=== PATIENT | female | born 1940 | race African-American/Black ===

== ENCOUNTER 2020-04-17 18:57 | Observation (INO) ==
[2020-04-17 21:53] LABS: Basophils % 0.6 % (0.0-0.8); Eosinophils # 0.1 10*3/uL (0.0-0.87); Eosinophils % 1.8 % (0.00-10.9); Immature Granulocytes % 0.3 %; Immature Granulocytes Absolute 0.01 #; Lymphocytes # 0.5 10*3/uL (1.4-4.0); Lymphocytes % 16.2 % (21.3-54.2); Mean Corpuscular Volume 101.8 FL (87-102); Mean Platelet Volume 11.9 FL (9.6-12.0); Monocytes % 11.3 % (1.7-12.7); Neutrophils % 69.8 % (38.7-73.9); Platelet Count 119 T/CUMM (130-400); Red Blood Count 1.69 MC/CUMM (3.8-5.5); Red Cell Distribution Width 19.9 % (9.3-17.3); White Blood Count 3.3 T/CUMM (4-12)
[2020-04-17 21:55] LABS: Hemoglobin 5.5 GM/DL (12.0-16.0)
[2020-04-17 21:56] LABS: Hematocrit 17.2 VOL% (35.7-47.0)
[2020-04-17 22:10] LABS: Bilirubin,Total 0.9 MG/DL (0.2-1.0); Calcium 8.5 MG/DL (8.5-10.1); Osmolality,Calculated 277.4 MOS/KG (273-304); Total Protein 6.8 G/DL (6.4-8.3)
[2020-04-17] MEDS ORDERED: POTASSIUM CHLORIDE 20 MEQ TABLET PO STA (23:20)
[2020-04-17] MEDS ORDERED: SODIUM CHLORIDE 0.9% 1,000 ML IV PRN (23:29)
[2020-04-17] MEDS ORDERED: POTASSIUM CHLORIDE 20 MEQ TABLET PO PRN (23:29)
[2020-04-17] MEDS ORDERED: ACETAMINOPHEN 325 MG TABLET PO PRN (23:29)
[2020-04-17] MEDS ORDERED: ONDANSETRON 4 MG/2 ML VIAL IV PRN (23:29)
[2020-04-17] MEDS ORDERED: GLUCAGON 1 MG VIAL IM PRN (23:29)
[2020-04-17] MEDS ORDERED: DEXTROSE 50% 25 GM/50 ML VIAL IV PRN (23:29)
[2020-04-18] MEDS: PANTOPRAZOLE 40 MG VIAL IV SCH ×3 (01:20→20:54)
[2020-04-18 04:01] LABS: % Iron Saturation 93.6 % (18-50)
[2020-04-18 08:12] LABS: Albumin 2.1 G/DL (3.4-5.0); Bilirubin,Total 1.4 MG/DL (0.2-1.0); Calcium 8.7 MG/DL (8.5-10.1); Osmolality,Calculated 277.4 MOS/KG (273-304); Total Protein 6.2 G/DL (6.4-8.3)
[2020-04-18 15:54] LABS: Basophils % 1.1 % (0.0-0.8); Eosinophils # 0.1 10*3/uL (0.0-0.87); Eosinophils % 2.2 % (0.00-10.9); Hematocrit 30.7 VOL% (35.7-47.0); Immature Granulocytes % 0.6 %; Immature Granulocytes Absolute 0.02 #; Lymphocytes # 0.6 10*3/uL (1.4-4.0); Lymphocytes % 16.9 % (21.3-54.2); Mean Corpuscular HGB Conc 31.3 GM/DL (32-36); Mean Platelet Volume 11.8 FL (9.6-12.0); Monocytes % 8.6 % (1.7-12.7); Neutrophils % 70.6 % (38.7-73.9); Platelet Count 118 T/CUMM (130-400); Red Blood Count 3.23 MC/CUMM (3.8-5.5); Red Cell Distribution Width 22.5 % (9.3-17.3); White Blood Count 3.6 T/CUMM (4-12)
[2020-04-18 15:55] LABS: Hemoglobin 9.6 GM/DL (12.0-16.0)
[2020-04-18 16:13] LABS: INR 1.1; PT Patient Result 11.4 SECS (9.8-11.9)
[2020-04-18 16:38] LABS: Polychromasia Few
[2020-04-18 16:39] LABS: Anisocytosis 1+
[2020-04-18 16:40] LABS: Macrocytosis 1+; Microcytosis 1+; Ovalocytes Few; Platelet Estimate Adequate
[2020-04-18] MEDS: LACTULOSE 20 GM/30 ML UDCUP PO SCH ×3 (17:33→22:48)
[2020-04-18] MEDS: NON-FORMULARY MEDICATION (Sucroferric Oxyhydroxide [Velphoro] 500 MG) PO SCH (18:14)
[2020-04-18] MEDS: carvediloL 3.125 MG TABLET PO SCH (20:54)
[2020-04-19 03:52] LABS: Basophils # 0.1 10*3/uL (0.0-0.2); Basophils % 1.3 % (0.0-0.8); Eosinophils # 0.1 10*3/uL (0.0-0.87); Eosinophils % 2.7 % (0.00-10.9); Hemoglobin 9.7 GM/DL (12.0-16.0); Immature Granulocytes % 0.3 %; Immature Granulocytes Absolute 0.01 #; Lymphocytes # 0.7 10*3/uL (1.4-4.0); Lymphocytes % 19.6 % (21.3-54.2); Mean Corpuscular HGB Conc 31.3 GM/DL (32-36); Mean Corpuscular Volume 94.5 FL (87-102); Monocytes % 12.1 % (1.7-12.7); Platelet Count 119 T/CUMM (130-400); Red Blood Count 3.28 MC/CUMM (3.8-5.5); Red Cell Distribution Width 22.6 % (9.3-17.3); White Blood Count 3.7 T/CUMM (4-12)
[2020-04-19 04:15] LABS: Osmolality,Calculated 277.5 MOS/KG (273-304)
[2020-04-19 04:20] LABS: % Iron Saturation 64.8 % (18-50); Ferritin 1755.9 ng/ml (8-252); Hypochromasia 1+; Microcytosis Slight; Platelet Estimate Normal
[2020-04-19] MEDS: LACTULOSE 20 GM/30 ML UDCUP PO SCH ×4 (04:23→22:20)
[2020-04-19 04:30] LABS: Folate 3.8 NG/ML (5.4-24.0); Vitamin B12 552 PG/ML (211-911)
[2020-04-19 04:31] LABS: Parathyroid Hormone Intact 252.9 PG/ML (18.4-80.1)
[2020-04-19 06:42] LABS: Sedimentation Rate-Westergren 40 MM/HR (0-30)
[2020-04-19] MEDS ORDERED: SODIUM CHLORIDE 0.9% 1,000 ML IV SCH (08:00)
[2020-04-19] MEDS ORDERED: ETOMIDATE 20 MG/10 ML VIAL IV ONE (09:00)
[2020-04-19] MEDS ORDERED: LIDOCAINE 2% 5 ML VIAL ONE (09:00)
[2020-04-19] MEDS: PANTOPRAZOLE 40 MG VIAL IV SCH ×2 (09:51→20:33)
[2020-04-19] MEDS: NON-FORMULARY MEDICATION (Sucroferric Oxyhydroxide [Velphoro] 500 MG) PO SCH ×3 (10:08→18:36)
[2020-04-19] MEDS: FOLIC ACID 1 MG TABLET PO SCH (10:51)
[2020-04-19] MEDS: carvediloL 3.125 MG TABLET PO SCH ×2 (11:45→20:27)
[2020-04-20 04:07] LABS: Basophils % 0.8 % (0.0-0.8); Eosinophils # 0.1 10*3/uL (0.0-0.87); Eosinophils % 3.1 % (0.00-10.9); Hematocrit 27.2 VOL% (35.7-47.0); Hemoglobin 8.4 GM/DL (12.0-16.0); Immature Granulocytes % 1.3 %; Immature Granulocytes Absolute 0.05 #; Lymphocytes # 0.7 10*3/uL (1.4-4.0); Lymphocytes % 18.4 % (21.3-54.2); Mean Corpuscular HGB Conc 30.9 GM/DL (32-36); Mean Corpuscular Volume 96.1 FL (87-102); Monocytes % 13.6 % (1.7-12.7); Neutrophils % 62.8 % (38.7-73.9); Platelet Count 114 T/CUMM (130-400); Red Blood Count 2.83 MC/CUMM (3.8-5.5); White Blood Count 3.9 T/CUMM (4-12)
[2020-04-20 04:09] LABS: Calcium 8.3 MG/DL (8.5-10.1); Osmolality,Calculated 273.7 MOS/KG (273-304)
[2020-04-20 04:49] LABS: Atypical Lymphocytes Few; Eosinophils 1 % (0-10); Lymphocytes 19 % (20-55); Segmented Neutrophils 71 % (50-85); Total Cells Counted 100
[2020-04-20 04:50] LABS: Hypochromasia 1+; Macrocytosis 1+; Platelet Estimate Adequate; Polychromasia Slight
[2020-04-20] MEDS: LACTULOSE 20 GM/30 ML UDCUP PO SCH ×3 (05:37→17:37)
[2020-04-20 09:23] LABS: Hepatitis B Core IgM Quant 0.27 Index; Hepatitis B Surface Ag Quant < 0.10 Index; Hepatitis B Surface Ag Result Negative (Negative); Hepatitis C Virus Ab Result Negative (Negative)
[2020-04-20] MEDS: carvediloL 3.125 MG TABLET PO SCH ×2 (09:36→21:42)
[2020-04-20] MEDS: PANTOPRAZOLE 40 MG VIAL IV SCH ×2 (09:36→21:41)
[2020-04-20] MEDS: FOLIC ACID 1 MG TABLET PO SCH (09:36)
[2020-04-20] MEDS: NON-FORMULARY MEDICATION (Sucroferric Oxyhydroxide [Velphoro] 500 MG) PO SCH ×3 (09:54→17:37)
[2020-04-20] MEDS: POTASSIUM CHLORIDE 20 MEQ TABLET PO SCH (12:21)
[2020-04-20 17:55] LABS: Soluble Transf Receptor (sTfR) 2.5 mg/L (1.8 - 4.6)
[2020-04-21] MEDS: LACTULOSE 20 GM/30 ML UDCUP PO SCH ×3 (00:04→12:10)
[2020-04-21 07:13] LABS: Eosinophils # 0.1 10*3/uL (0.0-0.87); Eosinophils % 2.9 % (0.00-10.9); Hematocrit 29.8 VOL% (35.7-47.0); Hemoglobin 9.2 GM/DL (12.0-16.0); Immature Granulocytes % 0.2 %; Immature Granulocytes Absolute 0.01 #; Lymphocytes # 0.7 10*3/uL (1.4-4.0); Lymphocytes % 17.6 % (21.3-54.2); Mean Corpuscular HGB Conc 30.9 GM/DL (32-36); Mean Corpuscular Volume 97.4 FL (87-102); Mean Platelet Volume 11.5 FL (9.6-12.0); Neutrophils % 67.3 % (38.7-73.9); Platelet Count 109 T/CUMM (130-400); Red Blood Count 3.06 MC/CUMM (3.8-5.5); Red Cell Distribution Width 22.8 % (9.3-17.3); White Blood Count 4.1 T/CUMM (4-12)
[2020-04-21 07:32] LABS: Anisocytosis 1+; Macrocytosis 1+; Platelet Estimate Decreased
[2020-04-21 07:50] LABS: Calcium 8.9 MG/DL (8.5-10.1); Osmolality,Calculated 276.7 MOS/KG (273-304)
[2020-04-21] MEDS ORDERED: ASPIRIN EC 81 MG TABLET PO SCH (09:00)
[2020-04-21] MEDS: PANTOPRAZOLE 40 MG TABLET PO SCH ×2 (09:01→12:10)
[2020-04-21] MEDS: NON-FORMULARY MEDICATION (Sucroferric Oxyhydroxide [Velphoro] 500 MG) PO SCH ×2 (09:02→12:14)
[2020-04-21] MEDS: FOLIC ACID 1 MG TABLET PO SCH ×2 (09:02→12:10)
[2020-04-21] MEDS: carvediloL 3.125 MG TABLET PO SCH (09:02)
[2020-04-21] MEDS: POTASSIUM CHLORIDE 20 MEQ TABLET PO SCH (09:02)
[2020-04-21] MEDS ORDERED: CLOPIDOGREL 75 MG TABLET PO SCH (12:00)
[2020-04-21 12:20] VITALS: BP 96/48
== END 2020-04-21 14:05 | disposition home health service (06) ==
LOC: N.ED 18:57 → N.EDINP 18:57 → N.5E 04-18 15:30 → N.TELES 04-19 21:20
PROVIDERS: ADMIT Hospitalist; ATTEND Hospitalist

== ENCOUNTER 2020-05-15 17:48 | Inpatient (IN) ==
[2020-05-15 19:43] LABS: ABG Base Excess 7.9 MMOL/L (-2.5-2.5); ABG HCO3 31.7 MMOL/L (20-26); ABG Oxygen Saturation 98.4 % (95-100); ABG PCO2 40.3 MM HG (35-48); ABG PH 7.504 (7.35-7.45); ABG PO2 96.6 MM HG (80-95); ABG TCO2 29.6 MMOL/L (23-27)
[2020-05-15 20:32] LABS: Basophils % 1.3 % (0.0-0.8); Eosinophils # 0.1 10*3/uL (0.0-0.87); Eosinophils % 2.5 % (0.00-10.9); Hematocrit 24.6 VOL% (35.7-47.0); Hemoglobin 7.6 GM/DL (12.0-16.0); Immature Granulocytes % 0.3 %; Immature Granulocytes Absolute 0.01 #; Lymphocytes # 0.6 10*3/uL (1.4-4.0); Lymphocytes % 17.8 % (21.3-54.2); Mean Corpuscular HGB Conc 30.9 GM/DL (32-36); Mean Corpuscular Volume 101.2 FL (87-102); Mean Platelet Volume 12.9 FL (9.6-12.0); Monocytes % 12.4 % (1.7-12.7); Neutrophils % 65.7 % (38.7-73.9); Platelet Count 85 T/CUMM (130-400); Red Blood Count 2.43 MC/CUMM (3.8-5.5); Red Cell Distribution Width 21.1 % (9.3-17.3); White Blood Count 3.2 T/CUMM (4-12)
[2020-05-15 20:46] LABS: INR 1.2; PT Patient Result 12.7 SECS (9.8-11.9); Partial Thromboplastin Time 30.4 SECS (23.9-33.8)
[2020-05-15 20:53] LABS: Alanine Aminotransferase 38 U/L (13-56); Albumin 2.1 G/DL (3.4-5.0); Alkaline Phosphatase 164 U/L (45-117); Aspartate Amino Transferase 51 U/L (0-37); Blood Urea Nitrogen 14 MG/DL (7-18); Calcium 8.8 MG/DL (8.5-10.1); Estimated Glom Filtration Rate 10 ML/MIN; Glucose 82 MG/DL (74-106); Osmolality,Calculated 278.4 MOS/KG (273-304); Total Protein 6.3 G/DL (6.4-8.3)
[2020-05-15] MEDS ORDERED: SODIUM CHLORIDE 0.9% 1,000 ML IV PRN (20:53)
[2020-05-15 20:57] LABS: Salicylate < 2.8 MG/DL (2.8-20)
[2020-05-15 20:59] LABS: Acetaminophen < 2.0 UG/ML (10-30)
[2020-05-15 21:38] LABS: Band Neutrophils 1 % (0-10); Eosinophils 2 % (0-10); Lymphocytes 12 % (20-55); Segmented Neutrophils 80 % (50-85); Total Cells Counted 100
[2020-05-15 21:39] LABS: Macrocytosis 2+
[2020-05-15 21:40] LABS: Hypochromasia Slight; Polychromasia 1+
[2020-05-15 21:42] LABS: Platelet Estimate Decreased
[2020-05-16] MEDS ORDERED: DEXTROSE 50% 25 GM/50 ML VIAL IV PRN (00:21)
[2020-05-16] MEDS ORDERED: LACTULOSE 320 GM/480 ML BOTTLE RECTAL PRN (00:21)
[2020-05-16] MEDS ORDERED: hydrALAZINE 20 MG/1 ML VIAL IV PRN (00:21)
[2020-05-16] MEDS ORDERED: GLUCAGON 1 MG VIAL IM PRN (00:21)
[2020-05-16] MEDS ORDERED: ONDANSETRON 4 MG/2 ML VIAL IV PRN (00:21)
[2020-05-16 05:50] LABS: Basophils % 1.2 % (0.0-0.8); Eosinophils # 0.1 10*3/uL (0.0-0.87); Eosinophils % 2.1 % (0.00-10.9); Hemoglobin 7.6 GM/DL (12.0-16.0); Immature Granulocytes % 0.3 %; Immature Granulocytes Absolute 0.01 #; Lymphocytes # 0.5 10*3/uL (1.4-4.0); Lymphocytes % 13.9 % (21.3-54.2); Mean Corpuscular HGB Conc 30.4 GM/DL (32-36); Mean Corpuscular Volume 102.5 FL (87-102); Mean Platelet Volume 13.1 FL (9.6-12.0); Monocytes % 11.5 % (1.7-12.7); Platelet Count 83 T/CUMM (130-400); Red Blood Count 2.44 MC/CUMM (3.8-5.5); Red Cell Distribution Width 21.3 % (9.3-17.3); White Blood Count 3.3 T/CUMM (4-12)
[2020-05-16 06:18] LABS: Eosinophils 4 % (0-10); Hypochromasia 1+; Lymphocytes 13 % (20-55); Platelet Estimate Decreased; Segmented Neutrophils 73 % (50-85); Total Cells Counted 100
[2020-05-16 06:19] LABS: Macrocytosis 1+
[2020-05-16 06:36] LABS: Bilirubin,Total 1.6 MG/DL (0.2-1.0); Calcium 9.1 MG/DL (8.5-10.1); Osmolality,Calculated 278.4 MOS/KG (273-304); Total Protein 6.2 G/DL (6.4-8.3)
[2020-05-16] MEDS ORDERED: SODIUM CHLORIDE 0.9% 1,000 ML IV PRN (10:39)
[2020-05-16] MEDS: LACTULOSE 20 GM/30 ML UDCUP PO SCH ×3 (10:43→20:37)
[2020-05-16 11:34] LABS: Hemoglobin 7.9 GM/DL (12.0-16.0)
[2020-05-16] MEDS: SEVELAMER CARBONATE 800 MG TABLET PO SCH ×2 (11:51→16:29)
[2020-05-16] MEDS: PANTOPRAZOLE 40 MG TABLET PO SCH (15:51)
[2020-05-16 18:54] LABS: Hemoglobin 8.1 GM/DL (12.0-16.0)
[2020-05-16] MEDS: carvediloL 3.125 MG TABLET PO SCH (20:45)
[2020-05-17 03:15] LABS: Hematocrit 24.6 VOL% (35.7-47.0); Hemoglobin 7.5 GM/DL (12.0-16.0)
[2020-05-17] MEDS: LACTULOSE 20 GM/30 ML UDCUP PO SCH ×4 (03:29→20:13)
[2020-05-17 06:17] LABS: Basophils % 0.4 % (0.0-0.8); Eosinophils # 0.1 10*3/uL (0.0-0.87); Eosinophils % 1.7 % (0.00-10.9); Hematocrit 27.1 VOL% (35.7-47.0); Hemoglobin 8.3 GM/DL (12.0-16.0); Immature Granulocytes % 0.2 %; Immature Granulocytes Absolute 0.01 #; Lymphocytes # 0.4 10*3/uL (1.4-4.0); Lymphocytes % 9.3 % (21.3-54.2); Mean Corpuscular HGB Conc 30.6 GM/DL (32-36); Mean Corpuscular Volume 103.8 FL (87-102); Mean Platelet Volume 12.7 FL (9.6-12.0); Monocytes % 12.7 % (1.7-12.7); Neutrophils % 75.7 % (38.7-73.9); Red Blood Count 2.61 MC/CUMM (3.8-5.5); Red Cell Distribution Width 21.9 % (9.3-17.3)
[2020-05-17 06:20] LABS: Platelet Count 96 T/CUMM (130-400); White Blood Count 4.7 T/CUMM (4-12)
[2020-05-17 06:56] LABS: Hypochromasia 2+; Macrocytosis Slight; Ovalocytes Slight; Platelet Estimate Decreased
[2020-05-17] MEDS: SEVELAMER CARBONATE 800 MG TABLET PO SCH ×3 (10:10→16:23)
[2020-05-17 11:39] LABS: Hemoglobin 7.8 GM/DL (12.0-16.0)
[2020-05-17] MEDS ORDERED: LACTULOSE 20 GM/30 ML UDCUP NG ONE ×2 (13:00→17:00)
[2020-05-17] MEDS ORDERED: SODIUM CHLORIDE 0.9% 500 ML IV ONE (15:57)
[2020-05-17] MEDS: PANTOPRAZOLE 40 MG TABLET PO SCH ×2 (16:18→17:15)
[2020-05-17] MEDS: carvediloL 3.125 MG TABLET PO SCH ×2 (16:19→20:13)
[2020-05-17 16:51] LABS: Basophils % 0.5 % (0.0-0.8); Eosinophils % 0.5 % (0.00-10.9); Hematocrit 30.1 VOL% (35.7-47.0); Hemoglobin 9.2 GM/DL (12.0-16.0); Immature Granulocytes % 0.5 %; Immature Granulocytes Absolute 0.03 #; Lymphocytes # 0.3 10*3/uL (1.4-4.0); Lymphocytes % 5.3 % (21.3-54.2); Mean Corpuscular HGB Conc 30.6 GM/DL (32-36); Mean Corpuscular Volume 103.1 FL (87-102); Mean Platelet Volume 11.5 FL (9.6-12.0); Monocytes % 9.6 % (1.7-12.7); Neutrophils % 83.6 % (38.7-73.9); Platelet Count 106 T/CUMM (130-400); Red Blood Count 2.92 MC/CUMM (3.8-5.5); Red Cell Distribution Width 21.9 % (9.3-17.3); White Blood Count 5.6 T/CUMM (4-12)
[2020-05-17 17:25] LABS: Albumin 2.4 G/DL (3.4-5.0); Bilirubin,Total 1.6 MG/DL (0.2-1.0); Total Protein 7.9 G/DL (6.4-8.3)
[2020-05-17 17:40] LABS: Hypochromasia 3+; Macrocytosis 2+; Polychromasia 1+
[2020-05-17 17:41] LABS: Platelet Estimate Normal
[2020-05-17] MEDS: RIFAXIMIN 550 MG TABLET PO SCH (20:13)
[2020-05-18] MEDS: LACTULOSE 20 GM/30 ML UDCUP PO SCH ×6 (00:36→20:43)
[2020-05-18 05:05] LABS: Basophils % 0.9 % (0.0-0.8); Eosinophils % 0.4 % (0.00-10.9); Hematocrit 27.3 VOL% (35.7-47.0); Hemoglobin 8.3 GM/DL (12.0-16.0); Lymphocytes # 0.3 10*3/uL (1.4-4.0); Lymphocytes % 5.8 % (21.3-54.2); Mean Corpuscular HGB Conc 30.4 GM/DL (32-36); Mean Corpuscular Volume 101.1 FL (87-102); Mean Platelet Volume 12.1 FL (9.6-12.0); Monocytes % 10.7 % (1.7-12.7); Neutrophils % 82.2 % (38.7-73.9); Platelet Count 105 T/CUMM (130-400); White Blood Count 4.5 T/CUMM (4-12)
[2020-05-18 05:44] LABS: Albumin 2.1 G/DL (3.4-5.0); Bilirubin,Total 1.2 MG/DL (0.2-1.0); Calcium 9.1 MG/DL (8.5-10.1); Osmolality,Calculated 279.4 MOS/KG (273-304); Total Protein 6.9 G/DL (6.4-8.3)
[2020-05-18] MEDS: RIFAXIMIN 550 MG TABLET PO SCH ×2 (08:14→20:43)
[2020-05-18] MEDS: SEVELAMER CARBONATE 800 MG TABLET PO SCH ×3 (08:14→16:00)
[2020-05-18] MEDS: carvediloL 3.125 MG TABLET PO SCH ×2 (08:14→20:43)
[2020-05-18] MEDS: PANTOPRAZOLE 40 MG TABLET PO SCH ×2 (08:14→15:45)
[2020-05-18] MEDS ORDERED: NIFEdipine 10 MG CAPSULE PO PRN (10:18)
[2020-05-18] MEDS ORDERED: INFLUENZA VIRUS VACCINE 0.5 ML SYRINGE IM ONE (12:38)
[2020-05-19] MEDS: LACTULOSE 20 GM/30 ML UDCUP PO SCH ×6 (00:59→20:37)
[2020-05-19 05:28] LABS: Basophils % 0.4 % (0.0-0.8); Eosinophils % 0.8 % (0.00-10.9); Hematocrit 27.5 VOL% (35.7-47.0); Hemoglobin 8.4 GM/DL (12.0-16.0); Immature Granulocytes % 0.4 %; Immature Granulocytes Absolute 0.02 #; Lymphocytes # 0.6 10*3/uL (1.4-4.0); Lymphocytes % 11.2 % (21.3-54.2); Mean Corpuscular HGB Conc 30.5 GM/DL (32-36); Mean Platelet Volume 11.9 FL (9.6-12.0); Neutrophils % 75.2 % (38.7-73.9); Platelet Count 103 T/CUMM (130-400); Red Blood Count 2.62 MC/CUMM (3.8-5.5); Red Cell Distribution Width 22.1 % (9.3-17.3); White Blood Count 5.1 T/CUMM (4-12)
[2020-05-19 05:48] LABS: Hypochromasia 2+; Lymphocytes 16 % (20-55); Microcytosis Slight; Ovalocytes Slight; Platelet Estimate Decreased; Segmented Neutrophils 72 % (50-85); Total Cells Counted 100
[2020-05-19 06:07] LABS: Albumin 2.1 G/DL (3.4-5.0); Bilirubin,Total 1.1 MG/DL (0.2-1.0); Osmolality,Calculated 290.8 MOS/KG (273-304); Total Protein 6.8 G/DL (6.4-8.3)
[2020-05-19] MEDS: RIFAXIMIN 550 MG TABLET PO SCH ×2 (09:23→20:37)
[2020-05-19] MEDS: SEVELAMER CARBONATE 800 MG TABLET PO SCH ×3 (09:23→17:55)
[2020-05-19] MEDS: carvediloL 3.125 MG TABLET PO SCH ×2 (09:23→20:37)
[2020-05-19] MEDS: PANTOPRAZOLE 40 MG TABLET PO SCH ×2 (09:23→17:55)
[2020-05-20] MEDS: LACTULOSE 20 GM/30 ML UDCUP PO SCH ×6 (00:58→20:30)
[2020-05-20 06:07] LABS: Basophils % 0.8 % (0.0-0.8); Eosinophils # 0.1 10*3/uL (0.0-0.87); Eosinophils % 1.3 % (0.00-10.9); Hemoglobin 8.7 GM/DL (12.0-16.0); Immature Granulocytes % 0.2 %; Immature Granulocytes Absolute 0.01 #; Lymphocytes # 0.6 10*3/uL (1.4-4.0); Lymphocytes % 13.5 % (21.3-54.2); Mean Corpuscular HGB Conc 31.1 GM/DL (32-36); Mean Corpuscular Volume 102.9 FL (87-102); Mean Platelet Volume 12.7 FL (9.6-12.0); Monocytes % 11.4 % (1.7-12.7); Neutrophils % 72.8 % (38.7-73.9); Platelet Count 102 T/CUMM (130-400); Red Blood Count 2.72 MC/CUMM (3.8-5.5); Red Cell Distribution Width 21.4 % (9.3-17.3); White Blood Count 4.8 T/CUMM (4-12)
[2020-05-20 06:24] LABS: Calcium 8.8 MG/DL (8.5-10.1); Osmolality,Calculated 280.3 MOS/KG (273-304)
[2020-05-20] MEDS: PANTOPRAZOLE 40 MG TABLET PO SCH ×2 (10:04→17:34)
[2020-05-20] MEDS: SEVELAMER CARBONATE 800 MG TABLET PO SCH ×3 (10:04→17:34)
[2020-05-20] MEDS: RIFAXIMIN 550 MG TABLET PO SCH ×2 (10:04→20:31)
[2020-05-20] MEDS: carvediloL 3.125 MG TABLET PO SCH ×2 (10:04→20:31)
[2020-05-20] MEDS ORDERED: MAGNESIUM SULF RIDER 4 GM in PREMIX 1 EACH IV PRN (17:02)
[2020-05-20] MEDS ORDERED: POTASSIUM CHLORIDE 20 MEQ TABLET PO ONE (17:02)
[2020-05-20] MEDS ORDERED: MAGNESIUM SULF RIDER 2 GM in PREMIX 1 EACH IV PRN (17:02)
[2020-05-21] MEDS: LACTULOSE 20 GM/30 ML UDCUP PO SCH ×5 (00:38→18:19)
[2020-05-21 08:01] LABS: Basophils # 0.1 10*3/uL (0.0-0.2); Basophils % 0.8 % (0.0-0.8); Eosinophils # 0.1 10*3/uL (0.0-0.87); Eosinophils % 2.1 % (0.00-10.9); Hematocrit 29.1 VOL% (35.7-47.0); Hemoglobin 8.7 GM/DL (12.0-16.0); Immature Granulocytes % 0.5 %; Immature Granulocytes Absolute 0.03 #; Lymphocytes # 0.8 10*3/uL (1.4-4.0); Lymphocytes % 12.9 % (21.3-54.2); Mean Corpuscular HGB Conc 29.9 GM/DL (32-36); Mean Corpuscular Volume 106.6 FL (87-102); Mean Platelet Volume 11.9 FL (9.6-12.0); Monocytes % 11.4 % (1.7-12.7); Neutrophils % 72.3 % (38.7-73.9); Platelet Count 103 T/CUMM (130-400); Red Blood Count 2.73 MC/CUMM (3.8-5.5); Red Cell Distribution Width 21.1 % (9.3-17.3); White Blood Count 6.1 T/CUMM (4-12)
[2020-05-21 08:23] LABS: Calcium 8.9 MG/DL (8.5-10.1); Osmolality,Calculated 286.1 MOS/KG (273-304)
[2020-05-21 08:31] LABS: Anisocytosis 1+; Atypical Lymphocytes Few; Eosinophils 2 % (0-10); Lymphocytes 17 % (20-55); Segmented Neutrophils 76 % (50-85); Total Cells Counted 100
[2020-05-21 08:32] LABS: Hypochromasia 1+; Platelet Estimate Decreased; Polychromasia Slight
[2020-05-21] MEDS: carvediloL 3.125 MG TABLET PO SCH ×2 (10:34→20:59)
[2020-05-21] MEDS: SEVELAMER CARBONATE 800 MG TABLET PO SCH ×3 (10:34→18:19)
[2020-05-21] MEDS: RIFAXIMIN 550 MG TABLET PO SCH ×2 (10:34→20:59)
[2020-05-21] MEDS: PANTOPRAZOLE 40 MG TABLET PO SCH ×2 (10:34→10:56)
[2020-05-22] MEDS: LACTULOSE 20 GM/30 ML UDCUP PO SCH ×3 (00:53→14:47)
[2020-05-22 06:10] LABS: Basophils # 0.1 10*3/uL (0.0-0.2); Basophils % 0.8 % (0.0-0.8); Eosinophils # 0.2 10*3/uL (0.0-0.87); Eosinophils % 2.7 % (0.00-10.9); Hematocrit 29.3 VOL% (35.7-47.0); Hemoglobin 8.7 GM/DL (12.0-16.0); Immature Granulocytes % 0.3 %; Immature Granulocytes Absolute 0.02 #; Lymphocytes % 16.3 % (21.3-54.2); Mean Corpuscular HGB Conc 29.7 GM/DL (32-36); Mean Corpuscular Volume 106.2 FL (87-102); Mean Platelet Volume 12.5 FL (9.6-12.0); Neutrophils % 70.9 % (38.7-73.9); Platelet Count 104 T/CUMM (130-400); Red Blood Count 2.76 MC/CUMM (3.8-5.5); Red Cell Distribution Width 20.5 % (9.3-17.3)
[2020-05-22 06:27] LABS: Calcium 9.1 MG/DL (8.5-10.1); Osmolality,Calculated 284.3 MOS/KG (273-304)
[2020-05-22 06:36] LABS: Hypochromasia 1+
[2020-05-22 06:37] LABS: Acanthocytes Few; Anisocytosis 1+; Ovalocytes Slight; Polychromasia Slight
[2020-05-22 06:38] LABS: Platelet Estimate Decreased
[2020-05-22 09:16] VITALS: BP 158/38
[2020-05-22] MEDS ORDERED: POTASSIUM CHLORIDE 20 MEQ TABLET PO ONE (12:00)
[2020-05-22] MEDS: SEVELAMER CARBONATE 800 MG TABLET PO SCH ×2 (14:46→14:49)
[2020-05-22] MEDS: RIFAXIMIN 550 MG TABLET PO SCH (14:46)
[2020-05-22] MEDS: PANTOPRAZOLE 40 MG TABLET PO SCH (14:46)
[2020-05-22] MEDS: carvediloL 3.125 MG TABLET PO SCH (14:46)
== END 2020-05-22 18:35 | disposition home health service (06) | DRG 441 ==
LOC: N.ED 17:48 → SUATTDRO 05-16 00:21 → N.EDINP 05-16 00:21 → N.3E 05-16 02:48 → N.ICU 05-17 16:54 → N.3E 05-18 13:18
PROVIDERS: ADMIT Internal Medicine; ATTEND Family Medicine

== ENCOUNTER 2020-05-31 01:54 | Inpatient (IN) ==
[2020-05-31 03:40] LABS: Basophils % 0.3 % (0.0-0.8); Eosinophils % 0.1 % (0.00-10.9); Hematocrit 27.4 VOL% (35.7-47.0); Hemoglobin 8.2 GM/DL (12.0-16.0); Lymphocytes # 0.2 10*3/uL (1.4-4.0); Lymphocytes % 1.6 % (21.3-54.2); Mean Corpuscular HGB Conc 29.9 GM/DL (32-36); Mean Corpuscular Volume 103.8 FL (87-102); Monocytes % 7.9 % (1.7-12.7); Neutrophils % 88.1 % (38.7-73.9); Platelet Count 158 T/CUMM (130-400); Red Blood Count 2.64 MC/CUMM (3.8-5.5); Red Cell Distribution Width 18.5 % (9.3-17.3); White Blood Count 15.3 T/CUMM (4-12)
[2020-05-31 04:07] LABS: INR 1.2
[2020-05-31 04:09] LABS: Alanine Aminotransferase 17 U/L (13-56); Albumin 1.8 G/DL (3.4-5.0); Alkaline Phosphatase 139 U/L (45-117); Aspartate Amino Transferase 16 U/L (0-37); Blood Urea Nitrogen 25 MG/DL (7-18); Calcium 9.2 MG/DL (8.5-10.1); Estimated Glom Filtration Rate 5 ML/MIN; Glucose 130 MG/DL (74-106); Osmolality,Calculated 286.3 MOS/KG (273-304); Total Protein 6.8 G/DL (6.4-8.3)
[2020-05-31 04:12] LABS: Band Neutrophils 3 % (0-10); Hypochromasia 1+; Microcytosis 1+; Platelet Estimate Adequate; Segmented Neutrophils 93 % (50-85); Total Cells Counted 100
[2020-05-31 04:13] LABS: Ovalocytes Slight
[2020-05-31] MEDS ORDERED: VANCOMYCIN INJ 1,000 MG in SODIUM CHLORIDE 0.9% 250 ML IV STA (04:45)
[2020-05-31] MEDS ORDERED: GLUCAGON 1 MG VIAL IM PRN ×2 (04:47)
[2020-05-31] MEDS ORDERED: ONDANSETRON 4 MG/2 ML VIAL IV PRN (04:47)
[2020-05-31] MEDS ORDERED: DEXTROSE 50% 25 GM/50 ML VIAL IV PRN ×2 (04:47)
[2020-05-31] MEDS: PIPERACILLIN/TAZOBACTAM 3,375 MG in SODIUM CHLORIDE 0.9% 100 ML IV SCH ×2 (06:54→18:13)
[2020-05-31] MEDS ORDERED: LACTULOSE 320 GM/480 ML BOTTLE PO SCH (09:00)
[2020-05-31] MEDS: INSULIN LISPRO 100 UNIT/ML SUBCUT SCH ×4 (09:47→21:43)
[2020-05-31] MEDS: SEVELAMER CARBONATE 800 MG TABLET PO SCH ×3 (10:19→18:13)
[2020-05-31] MEDS: carvediloL 3.125 MG TABLET PO SCH ×2 (10:19→18:13)
[2020-05-31] MEDS: RIFAXIMIN 550 MG TABLET PO SCH ×2 (10:19→21:41)
[2020-05-31] MEDS: PANTOPRAZOLE 40 MG TABLET PO SCH (10:19)
[2020-05-31] MEDS: LACTULOSE 20 GM/30 ML UDCUP PO SCH ×3 (11:01→21:41)
[2020-06-01 05:35] LABS: Basophils % 0.2 % (0.0-0.8); Eosinophils % 0.2 % (0.00-10.9); Hematocrit 28.7 VOL% (35.7-47.0); Hemoglobin 8.8 GM/DL (12.0-16.0); Immature Granulocytes % 0.6 %; Immature Granulocytes Absolute 0.08 #; Lymphocytes # 0.4 10*3/uL (1.4-4.0); Lymphocytes % 3.1 % (21.3-54.2); Mean Corpuscular HGB Conc 30.7 GM/DL (32-36); Mean Corpuscular Volume 103.2 FL (87-102); Mean Platelet Volume 12.2 FL (9.6-12.0); Monocytes % 8.1 % (1.7-12.7); Neutrophils % 87.8 % (38.7-73.9); Platelet Count 144 T/CUMM (130-400); Red Blood Count 2.78 MC/CUMM (3.8-5.5); Red Cell Distribution Width 17.9 % (9.3-17.3); White Blood Count 12.7 T/CUMM (4-12)
[2020-06-01] MEDS: PIPERACILLIN/TAZOBACTAM 3,375 MG in SODIUM CHLORIDE 0.9% 100 ML IV SCH ×2 (05:45→17:32)
[2020-06-01] MEDS: LACTULOSE 20 GM/30 ML UDCUP PO SCH ×4 (05:45→23:13)
[2020-06-01 05:58] LABS: Burr Cells Slight; Hypochromasia 1+; Lymphocytes 1 % (20-55); Microcytosis 1+; Ovalocytes Slight; Platelet Estimate Adequate; Segmented Neutrophils 94 % (50-85); Total Cells Counted 100
[2020-06-01] MEDS: INSULIN LISPRO 100 UNIT/ML SUBCUT SCH ×4 (07:43→21:17)
[2020-06-01] MEDS: RIFAXIMIN 550 MG TABLET PO SCH ×2 (08:17→21:17)
[2020-06-01] MEDS: carvediloL 3.125 MG TABLET PO SCH ×2 (08:17→17:31)
[2020-06-01] MEDS: PANTOPRAZOLE 40 MG TABLET PO SCH (08:17)
[2020-06-01] MEDS: SEVELAMER CARBONATE 800 MG TABLET PO SCH ×3 (08:17→17:31)
[2020-06-01] MEDS ORDERED: VANCOMYCIN INJ 500 MG in SODIUM CHLORIDE 0.9% 100 ML IV PRN (11:28)
[2020-06-01] MEDS ORDERED: VANCOMYCIN INJ 500 MG in SODIUM CHLORIDE 0.9% 100 ML IV ONE (12:00)
[2020-06-02] MEDS: LACTULOSE 20 GM/30 ML UDCUP PO SCH ×5 (04:58→21:43)
[2020-06-02] MEDS: PIPERACILLIN/TAZOBACTAM 3,375 MG in SODIUM CHLORIDE 0.9% 100 ML IV SCH ×2 (04:59→20:45)
[2020-06-02 05:48] LABS: Basophils % 0.3 % (0.0-0.8); Eosinophils # 0.1 10*3/uL (0.0-0.87); Eosinophils % 1.4 % (0.00-10.9); Hematocrit 29.2 VOL% (35.7-47.0); Hemoglobin 9.2 GM/DL (12.0-16.0); Immature Granulocytes % 0.4 %; Immature Granulocytes Absolute 0.04 #; Lymphocytes # 0.4 10*3/uL (1.4-4.0); Lymphocytes % 3.8 % (21.3-54.2); Mean Corpuscular HGB Conc 31.5 GM/DL (32-36); Mean Corpuscular Volume 100.3 FL (87-102); Mean Platelet Volume 12.1 FL (9.6-12.0); Monocytes % 7.3 % (1.7-12.7); Neutrophils % 86.8 % (38.7-73.9); Platelet Count 136 T/CUMM (130-400); Red Blood Count 2.91 MC/CUMM (3.8-5.5); Red Cell Distribution Width 17.6 % (9.3-17.3); White Blood Count 9.3 T/CUMM (4-12)
[2020-06-02 05:58] LABS: Calcium 8.7 MG/DL (8.5-10.1); Osmolality,Calculated 281.8 MOS/KG (273-304)
[2020-06-02 06:28] LABS: Band Neutrophils 1 % (0-10); Lymphocytes 2 % (20-55); Segmented Neutrophils 94 % (50-85); Total Cells Counted 100
[2020-06-02 06:29] LABS: Anisocytosis 1+; Hypochromasia 1+; Microcytosis 1+; Ovalocytes Slight; Platelet Estimate Adequate
[2020-06-02] MEDS: INSULIN LISPRO 100 UNIT/ML SUBCUT SCH ×4 (07:11→20:46)
[2020-06-02] MEDS: SEVELAMER CARBONATE 800 MG TABLET PO SCH ×3 (08:00→17:59)
[2020-06-02] MEDS: carvediloL 3.125 MG TABLET PO SCH ×2 (08:00→17:59)
[2020-06-02] MEDS: RIFAXIMIN 550 MG TABLET PO SCH ×2 (09:00→21:52)
[2020-06-02] MEDS ORDERED: VANCOMYCIN INJ 500 MG in SODIUM CHLORIDE 0.9% 100 ML IV ONE (17:00)
[2020-06-02] MEDS: PANTOPRAZOLE 40 MG TABLET PO SCH (17:59)
[2020-06-02] MEDS: MENTHOL/ZINC OXIDE OINT 71 GM JAR TOP SCH (21:53)
[2020-06-03] MEDS: LACTULOSE 20 GM/30 ML UDCUP PO SCH ×4 (03:55→21:55)
[2020-06-03] MEDS: PIPERACILLIN/TAZOBACTAM 3,375 MG in SODIUM CHLORIDE 0.9% 100 ML IV SCH ×2 (05:04→07:04)
[2020-06-03 05:36] LABS: Basophils % 0.2 % (0.0-0.8); Eosinophils # 0.1 10*3/uL (0.0-0.87); Eosinophils % 0.5 % (0.00-10.9); Hematocrit 26.4 VOL% (35.7-47.0); Immature Granulocytes Absolute 0.11 #; Lymphocytes # 0.6 10*3/uL (1.4-4.0); Lymphocytes % 5.2 % (21.3-54.2); Mean Corpuscular HGB Conc 30.3 GM/DL (32-36); Mean Corpuscular Volume 102.7 FL (87-102); Mean Platelet Volume 11.9 FL (9.6-12.0); Monocytes % 7.2 % (1.7-12.7); NRBC # 0.03 10*3/uL; Neutrophils % 85.9 % (38.7-73.9); Platelet Count 144 T/CUMM (130-400); Red Blood Count 2.57 MC/CUMM (3.8-5.5); Red Cell Distribution Width 17.7 % (9.3-17.3); White Blood Count 11.4 T/CUMM (4-12)
[2020-06-03 06:01] LABS: Calcium 8.5 MG/DL (8.5-10.1)
[2020-06-03] MEDS: INSULIN LISPRO 100 UNIT/ML SUBCUT SCH ×4 (10:07→21:53)
[2020-06-03] MEDS: RIFAXIMIN 550 MG TABLET PO SCH ×2 (10:08→21:53)
[2020-06-03] MEDS: PANTOPRAZOLE 40 MG TABLET PO SCH (10:08)
[2020-06-03] MEDS: SEVELAMER CARBONATE 800 MG TABLET PO SCH ×3 (10:08→18:15)
[2020-06-03] MEDS: carvediloL 3.125 MG TABLET PO SCH ×2 (10:08→18:16)
[2020-06-03] MEDS: MENTHOL/ZINC OXIDE OINT 71 GM JAR TOP SCH ×2 (10:09→21:53)
[2020-06-03] MEDS ORDERED: POTASSIUM CHLORIDE 20 MEQ TABLET PO ONE (13:41)
[2020-06-04] MEDS: LACTULOSE 20 GM/30 ML UDCUP PO SCH ×4 (03:58→23:03)
[2020-06-04 05:53] LABS: Osmolality,Calculated 283.7 MOS/KG (273-304)
[2020-06-04 06:01] LABS: % Iron Saturation 93.8 % (18-50); Ferritin 1718.4 ng/ml (8-252)
[2020-06-04 06:02] LABS: Basophils % 0.4 % (0.0-0.8); Eosinophils # 0.1 10*3/uL (0.0-0.87); Eosinophils % 1.1 % (0.00-10.9); Hematocrit 23.2 VOL% (35.7-47.0); Hemoglobin 7.4 GM/DL (12.0-16.0); Immature Granulocytes % 0.8 %; Immature Granulocytes Absolute 0.06 #; Lymphocytes # 0.6 10*3/uL (1.4-4.0); Lymphocytes % 7.1 % (21.3-54.2); Mean Corpuscular HGB Conc 31.9 GM/DL (32-36); Mean Corpuscular Volume 98.7 FL (87-102); Mean Platelet Volume 12.3 FL (9.6-12.0); Monocytes % 7.5 % (1.7-12.7); Neutrophils % 83.1 % (38.7-73.9); Platelet Count 114 T/CUMM (130-400); Red Blood Count 2.35 MC/CUMM (3.8-5.5); Red Cell Distribution Width 17.6 % (9.3-17.3)
[2020-06-04 06:21] LABS: Folate 11.8 NG/ML (5.4-24.0); Vitamin B12 527 PG/ML (211-911)
[2020-06-04 06:26] LABS: Hypochromasia 1+; Microcytosis 1+; Ovalocytes Slight; Platelet Estimate Decreased
[2020-06-04 06:41] LABS: Sedimentation Rate-Westergren 118 MM/HR (0-30)
[2020-06-04] MEDS: INSULIN LISPRO 100 UNIT/ML SUBCUT SCH ×4 (07:47→20:46)
[2020-06-04] MEDS: MENTHOL/ZINC OXIDE OINT 71 GM JAR TOP SCH ×2 (08:00→20:47)
[2020-06-04] MEDS: SEVELAMER CARBONATE 800 MG TABLET PO SCH ×3 (10:20→17:04)
[2020-06-04] MEDS: PANTOPRAZOLE 40 MG TABLET PO SCH (10:20)
[2020-06-04] MEDS: IRON (CARBONYL)/VIT C/B12/FA TABLET PO SCH (10:20)
[2020-06-04] MEDS: RIFAXIMIN 550 MG TABLET PO SCH ×2 (10:20→20:46)
[2020-06-04] MEDS: carvediloL 3.125 MG TABLET PO SCH ×2 (12:43→17:04)
[2020-06-05] MEDS: LACTULOSE 20 GM/30 ML UDCUP PO SCH ×4 (03:55→21:59)
[2020-06-05 05:16] LABS: Basophils % 0.3 % (0.0-0.8); Eosinophils # 0.1 10*3/uL (0.0-0.87); Eosinophils % 1.6 % (0.00-10.9); Hematocrit 24.5 VOL% (35.7-47.0); Hemoglobin 7.6 GM/DL (12.0-16.0); Immature Granulocytes % 0.7 %; Immature Granulocytes Absolute 0.05 #; Lymphocytes # 0.4 10*3/uL (1.4-4.0); Lymphocytes % 5.9 % (21.3-54.2); Mean Corpuscular Volume 99.6 FL (87-102); Mean Platelet Volume 12.2 FL (9.6-12.0); Monocytes % 5.9 % (1.7-12.7); Neutrophils % 85.6 % (38.7-73.9); Platelet Count 121 T/CUMM (130-400); Red Blood Count 2.46 MC/CUMM (3.8-5.5); Red Cell Distribution Width 17.8 % (9.3-17.3); White Blood Count 7.5 T/CUMM (4-12)
[2020-06-05 05:42] LABS: Calcium 9.2 MG/DL (8.5-10.1)
[2020-06-05] MEDS: INSULIN LISPRO 100 UNIT/ML SUBCUT SCH ×4 (07:08→21:59)
[2020-06-05] MEDS: RIFAXIMIN 550 MG TABLET PO SCH ×2 (08:14→21:58)
[2020-06-05] MEDS: IRON (CARBONYL)/VIT C/B12/FA TABLET PO SCH (08:14)
[2020-06-05] MEDS: MENTHOL/ZINC OXIDE OINT 71 GM JAR TOP SCH ×2 (08:14→21:59)
[2020-06-05] MEDS: carvediloL 3.125 MG TABLET PO SCH ×2 (08:15→16:12)
[2020-06-05] MEDS: PANTOPRAZOLE 40 MG TABLET PO SCH (08:15)
[2020-06-05] MEDS: SEVELAMER CARBONATE 800 MG TABLET PO SCH ×3 (08:15→17:06)
[2020-06-05 12:53] LABS: Hemoglobin A1 (Alkaline) 97.5 % (96.5-98.5); Hemoglobin A2 (Alkaline) 2.5 % (1.5-3.5)
[2020-06-05] MEDS ORDERED: VANCOMYCIN INJ 500 MG in SODIUM CHLORIDE 0.9% 100 ML IV ONE (17:00)
[2020-06-05] MEDS: POTASSIUM CHLORIDE 20 MEQ TABLET PO PRN ×4 (17:06→23:23)
[2020-06-06] MEDS: LACTULOSE 20 GM/30 ML UDCUP PO SCH ×4 (04:35→21:34)
[2020-06-06 05:42] LABS: Basophils % 0.5 % (0.0-0.8); Eosinophils # 0.1 10*3/uL (0.0-0.87); Eosinophils % 1.7 % (0.00-10.9); Hematocrit 26.8 VOL% (35.7-47.0); Hemoglobin 8.1 GM/DL (12.0-16.0); Immature Granulocytes % 0.5 %; Immature Granulocytes Absolute 0.03 #; Lymphocytes # 0.5 10*3/uL (1.4-4.0); Lymphocytes % 9.3 % (21.3-54.2); Mean Corpuscular HGB Conc 30.2 GM/DL (32-36); Mean Corpuscular Volume 101.1 FL (87-102); Mean Platelet Volume 12.2 FL (9.6-12.0); Monocytes % 7.2 % (1.7-12.7); Neutrophils % 80.8 % (38.7-73.9); Platelet Count 119 T/CUMM (130-400); Red Blood Count 2.65 MC/CUMM (3.8-5.5); Red Cell Distribution Width 18.3 % (9.3-17.3); White Blood Count 5.8 T/CUMM (4-12)
[2020-06-06 05:54] LABS: Calcium 8.8 MG/DL (8.5-10.1); Osmolality,Calculated 278.5 MOS/KG (273-304)
[2020-06-06] MEDS: INSULIN LISPRO 100 UNIT/ML SUBCUT SCH ×4 (07:16→21:28)
[2020-06-06] MEDS: IRON (CARBONYL)/VIT C/B12/FA TABLET PO SCH (08:32)
[2020-06-06] MEDS: carvediloL 3.125 MG TABLET PO SCH ×2 (08:32→17:25)
[2020-06-06] MEDS: PANTOPRAZOLE 40 MG TABLET PO SCH (08:32)
[2020-06-06] MEDS: RIFAXIMIN 550 MG TABLET PO SCH ×2 (08:32→21:28)
[2020-06-06] MEDS: SEVELAMER CARBONATE 800 MG TABLET PO SCH ×3 (08:32→17:25)
[2020-06-06] MEDS: MENTHOL/ZINC OXIDE OINT 71 GM JAR TOP SCH ×2 (08:33→21:28)
[2020-06-06 17:41] LABS: Soluble Transf Receptor (sTfR) 3.7 mg/L (1.8 - 4.6)
[2020-06-07] MEDS: LACTULOSE 20 GM/30 ML UDCUP PO SCH ×4 (03:35→21:45)
[2020-06-07] MEDS: INSULIN LISPRO 100 UNIT/ML SUBCUT SCH ×4 (07:07→21:45)
[2020-06-07] MEDS: SEVELAMER CARBONATE 800 MG TABLET PO SCH ×3 (08:00→17:13)
[2020-06-07] MEDS: carvediloL 3.125 MG TABLET PO SCH ×2 (08:00→17:13)
[2020-06-07] MEDS: PANTOPRAZOLE 40 MG TABLET PO SCH (09:00)
[2020-06-07] MEDS: RIFAXIMIN 550 MG TABLET PO SCH ×2 (09:00→21:45)
[2020-06-07] MEDS: MENTHOL/ZINC OXIDE OINT 71 GM JAR TOP SCH ×2 (09:00→21:45)
[2020-06-07] MEDS ORDERED: PANTOPRAZOLE 40 MG TABLET PO SCH (09:00)
[2020-06-07] MEDS: ATORVASTATIN 20 MG TABLET PO SCH (09:00)
[2020-06-07] MEDS: IRON (CARBONYL)/VIT C/B12/FA TABLET PO SCH (09:00)
[2020-06-07] MEDS ORDERED: VANCOMYCIN INJ 500 MG in SODIUM CHLORIDE 0.9% 100 ML IV ONE (17:00)
[2020-06-08] MEDS: LACTULOSE 20 GM/30 ML UDCUP PO SCH ×4 (05:10→22:18)
[2020-06-08 06:00] LABS: Basophils % 0.6 % (0.0-0.8); Eosinophils # 0.1 10*3/uL (0.0-0.87); Eosinophils % 1.7 % (0.00-10.9); Hematocrit 24.9 VOL% (35.7-47.0); Hemoglobin 7.7 GM/DL (12.0-16.0); Immature Granulocytes % 0.3 %; Immature Granulocytes Absolute 0.02 #; Lymphocytes # 0.6 10*3/uL (1.4-4.0); Lymphocytes % 9.2 % (21.3-54.2); Mean Corpuscular HGB Conc 30.9 GM/DL (32-36); Mean Corpuscular Volume 102.5 FL (87-102); Mean Platelet Volume 12.1 FL (9.6-12.0); Monocytes % 7.7 % (1.7-12.7); Neutrophils % 80.5 % (38.7-73.9); Platelet Count 140 T/CUMM (130-400); Red Blood Count 2.43 MC/CUMM (3.8-5.5); Red Cell Distribution Width 18.6 % (9.3-17.3); White Blood Count 6.5 T/CUMM (4-12)
[2020-06-08 06:22] LABS: Calcium 8.6 MG/DL (8.5-10.1); Osmolality,Calculated 285.1 MOS/KG (273-304)
[2020-06-08] MEDS: INSULIN LISPRO 100 UNIT/ML SUBCUT SCH ×4 (07:40→20:55)
[2020-06-08] MEDS: SEVELAMER CARBONATE 800 MG TABLET PO SCH ×3 (08:00→18:47)
[2020-06-08] MEDS: RIFAXIMIN 550 MG TABLET PO SCH ×2 (09:00→20:55)
[2020-06-08] MEDS: carvediloL 3.125 MG TABLET PO SCH ×2 (09:05→18:48)
[2020-06-08] MEDS: MENTHOL/ZINC OXIDE OINT 71 GM JAR TOP SCH ×2 (09:55→20:55)
[2020-06-08] MEDS ORDERED: propofoL 200 MG/20 ML VIAL IV ONE (13:59)
[2020-06-08] MEDS ORDERED: LIDOCAINE 2% 5 ML VIAL ONE (13:59)
[2020-06-08] MEDS ORDERED: ETOMIDATE 40 MG/20 ML VIAL IV ONE (13:59)
[2020-06-08] MEDS: ATORVASTATIN 20 MG TABLET PO SCH (18:47)
[2020-06-08] MEDS: PANTOPRAZOLE 40 MG TABLET PO SCH (18:48)
[2020-06-08] MEDS: IRON (CARBONYL)/VIT C/B12/FA TABLET PO SCH (18:48)
[2020-06-09] MEDS: LACTULOSE 20 GM/30 ML UDCUP PO SCH ×4 (05:57→22:15)
[2020-06-09] MEDS: INSULIN LISPRO 100 UNIT/ML SUBCUT SCH ×4 (07:41→22:16)
[2020-06-09] MEDS: RIFAXIMIN 550 MG TABLET PO SCH ×2 (09:00→22:32)
[2020-06-09] MEDS: carvediloL 3.125 MG TABLET PO SCH ×3 (09:11→17:35)
[2020-06-09] MEDS: SEVELAMER CARBONATE 800 MG TABLET PO SCH ×3 (09:11→17:24)
[2020-06-09 09:26] LABS: Basophils % 0.6 % (0.0-0.8); Eosinophils # 0.1 10*3/uL (0.0-0.87); Hematocrit 27.2 VOL% (35.7-47.0); Hemoglobin 8.5 GM/DL (12.0-16.0); Immature Granulocytes % 0.8 %; Immature Granulocytes Absolute 0.05 #; Lymphocytes # 0.5 10*3/uL (1.4-4.0); Lymphocytes % 8.3 % (21.3-54.2); Mean Corpuscular HGB Conc 31.3 GM/DL (32-36); Mean Corpuscular Volume 100.7 FL (87-102); Monocytes % 6.1 % (1.7-12.7); Neutrophils % 82.2 % (38.7-73.9); Platelet Count 164 T/CUMM (130-400); Red Cell Distribution Width 18.9 % (9.3-17.3); White Blood Count 6.4 T/CUMM (4-12)
[2020-06-09 09:48] LABS: Calcium 8.3 MG/DL (8.5-10.1); Osmolality,Calculated 273.8 MOS/KG (273-304)
[2020-06-09] MEDS: ATORVASTATIN 20 MG TABLET PO SCH (10:58)
[2020-06-09] MEDS: MENTHOL/ZINC OXIDE OINT 71 GM JAR TOP SCH ×2 (13:54→22:33)
[2020-06-09] MEDS: IRON (CARBONYL)/VIT C/B12/FA TABLET PO SCH (14:57)
[2020-06-09] MEDS: PANTOPRAZOLE 40 MG TABLET PO SCH (14:57)
[2020-06-09] MEDS ORDERED: VANCOMYCIN INJ 500 MG in SODIUM CHLORIDE 0.9% 100 ML IV ONE (17:00)
[2020-06-10] MEDS: LACTULOSE 20 GM/30 ML UDCUP PO SCH ×4 (05:09→22:39)
[2020-06-10 06:53] LABS: Basophils % 0.6 % (0.0-0.8); Eosinophils # 0.1 10*3/uL (0.0-0.87); Eosinophils % 1.5 % (0.00-10.9); Hematocrit 27.4 VOL% (35.7-47.0); Hemoglobin 8.3 GM/DL (12.0-16.0); Immature Granulocytes % 0.6 %; Immature Granulocytes Absolute 0.04 #; Lymphocytes # 0.7 10*3/uL (1.4-4.0); Lymphocytes % 9.9 % (21.3-54.2); Mean Corpuscular HGB Conc 30.3 GM/DL (32-36); Mean Corpuscular Volume 102.2 FL (87-102); Mean Platelet Volume 11.1 FL (9.6-12.0); Monocytes % 10.3 % (1.7-12.7); Neutrophils % 77.1 % (38.7-73.9); Platelet Count 142 T/CUMM (130-400); Red Blood Count 2.68 MC/CUMM (3.8-5.5); Red Cell Distribution Width 18.6 % (9.3-17.3); White Blood Count 6.8 T/CUMM (4-12)
[2020-06-10 07:11] LABS: Calcium 8.4 MG/DL (8.5-10.1); Osmolality,Calculated 271.8 MOS/KG (273-304)
[2020-06-10] MEDS: INSULIN LISPRO 100 UNIT/ML SUBCUT SCH ×4 (08:11→22:40)
[2020-06-10] MEDS: MENTHOL/ZINC OXIDE OINT 71 GM JAR TOP SCH ×2 (09:39→22:40)
[2020-06-10] MEDS: carvediloL 3.125 MG TABLET PO SCH ×2 (09:40→16:07)
[2020-06-10] MEDS: RIFAXIMIN 550 MG TABLET PO SCH ×2 (09:40→22:39)
[2020-06-10] MEDS: SEVELAMER CARBONATE 800 MG TABLET PO SCH ×3 (09:40→16:07)
[2020-06-10] MEDS: IRON (CARBONYL)/VIT C/B12/FA TABLET PO SCH (09:40)
[2020-06-10] MEDS: PANTOPRAZOLE 40 MG TABLET PO SCH (09:40)
[2020-06-11] MEDS: LACTULOSE 20 GM/30 ML UDCUP PO SCH ×4 (06:01→22:51)
[2020-06-11 06:02] LABS: Basophils % 0.5 % (0.0-0.8); Eosinophils # 0.1 10*3/uL (0.0-0.87); Eosinophils % 1.5 % (0.00-10.9); Hematocrit 27.4 VOL% (35.7-47.0); Hemoglobin 8.4 GM/DL (12.0-16.0); Immature Granulocytes % 0.5 %; Immature Granulocytes Absolute 0.03 #; Lymphocytes # 0.5 10*3/uL (1.4-4.0); Lymphocytes % 8.3 % (21.3-54.2); Mean Corpuscular HGB Conc 30.7 GM/DL (32-36); Mean Corpuscular Volume 101.5 FL (87-102); Mean Platelet Volume 11.4 FL (9.6-12.0); Monocytes % 7.1 % (1.7-12.7); Neutrophils % 82.1 % (38.7-73.9); Platelet Count 151 T/CUMM (130-400); Red Cell Distribution Width 18.4 % (9.3-17.3)
[2020-06-11 06:17] LABS: Calcium 8.5 MG/DL (8.5-10.1)
[2020-06-11] MEDS: INSULIN LISPRO 100 UNIT/ML SUBCUT SCH ×4 (07:47→21:13)
[2020-06-11] MEDS: RIFAXIMIN 550 MG TABLET PO SCH ×2 (08:45→20:10)
[2020-06-11] MEDS: MENTHOL/ZINC OXIDE OINT 71 GM JAR TOP SCH ×2 (08:45→20:10)
[2020-06-11] MEDS: IRON (CARBONYL)/VIT C/B12/FA TABLET PO SCH (08:46)
[2020-06-11] MEDS: carvediloL 3.125 MG TABLET PO SCH ×2 (08:46→17:18)
[2020-06-11] MEDS: SEVELAMER CARBONATE 800 MG TABLET PO SCH ×3 (08:46→17:20)
[2020-06-11] MEDS: PANTOPRAZOLE 40 MG TABLET PO SCH (08:46)
[2020-06-12] MEDS: LACTULOSE 20 GM/30 ML UDCUP PO SCH ×2 (04:19→09:33)
[2020-06-12 05:35] LABS: Basophils % 0.6 % (0.0-0.8); Eosinophils # 0.2 10*3/uL (0.0-0.87); Eosinophils % 2.8 % (0.00-10.9); Hematocrit 26.1 VOL% (35.7-47.0); Hemoglobin 8.1 GM/DL (12.0-16.0); Immature Granulocytes % 0.4 %; Immature Granulocytes Absolute 0.02 #; Lymphocytes # 0.5 10*3/uL (1.4-4.0); Lymphocytes % 9.8 % (21.3-54.2); Mean Corpuscular Volume 100.8 FL (87-102); Mean Platelet Volume 11.9 FL (9.6-12.0); Monocytes % 8.3 % (1.7-12.7); Neutrophils % 78.1 % (38.7-73.9); Platelet Count 170 T/CUMM (130-400); Red Blood Count 2.59 MC/CUMM (3.8-5.5); Red Cell Distribution Width 18.3 % (9.3-17.3); White Blood Count 5.4 T/CUMM (4-12)
[2020-06-12 06:07] LABS: Calcium 8.7 MG/DL (8.5-10.1); Osmolality,Calculated 276.8 MOS/KG (273-304)
[2020-06-12] MEDS: INSULIN LISPRO 100 UNIT/ML SUBCUT SCH ×2 (07:36→13:23)
[2020-06-12] MEDS: MENTHOL/ZINC OXIDE OINT 71 GM JAR TOP SCH (08:35)
[2020-06-12] MEDS: carvediloL 3.125 MG TABLET PO SCH (08:35)
[2020-06-12] MEDS: RIFAXIMIN 550 MG TABLET PO SCH (08:35)
[2020-06-12] MEDS: SEVELAMER CARBONATE 800 MG TABLET PO SCH ×2 (08:35→13:24)
[2020-06-12] MEDS: IRON (CARBONYL)/VIT C/B12/FA TABLET PO SCH (08:35)
[2020-06-12] MEDS: PANTOPRAZOLE 40 MG TABLET PO SCH (08:35)
[2020-06-12] MEDS ORDERED: IRON SUCROSE 300 MG in SODIUM CHLORIDE 0.9% 100 ML IV ONE (10:00)
[2020-06-12 12:33] VITALS: BP 97/40
== END 2020-06-12 15:00 | disposition home health service (06) | DRG 871 ==
LOC: EDUNIT# → EDBD → N.ED 01:54 → N.EDINP 04:47 → SUATTDRO 04:47 → N.3E 05:39
PROVIDERS: ADMIT Hospitalist; ATTEND Hospitalist

== ENCOUNTER 2020-06-23 17:45 | Observation (INO) ==
[2020-06-23 22:31] LABS: Albumin 1.6 G/DL (3.4-5.0); Bilirubin,Total 0.5 MG/DL (0.2-1.0); Calcium 8.1 MG/DL (8.5-10.1); Osmolality,Calculated 273.5 MOS/KG (273-304); Total Protein 6.8 G/DL (6.4-8.3)
[2020-06-23 22:37] LABS: Basophils % 1.4 % (0.0-0.8); Eosinophils # 0.1 10*3/uL (0.0-0.87); Eosinophils % 4.5 % (0.00-10.9); Hematocrit 21.1 VOL% (35.7-47.0); Immature Granulocytes % 0.7 %; Immature Granulocytes Absolute 0.02 #; Lymphocytes # 0.6 10*3/uL (1.4-4.0); Lymphocytes % 19.1 % (21.3-54.2); Mean Corpuscular HGB Conc 31.8 GM/DL (32-36); Mean Corpuscular Volume 97.2 FL (87-102); Monocytes % 16.7 % (1.7-12.7); Neutrophils % 57.6 % (38.7-73.9); Platelet Count 105 T/CUMM (130-400); Red Blood Count 2.17 MC/CUMM (3.8-5.5); Red Cell Distribution Width 16.7 % (9.3-17.3); White Blood Count 2.9 T/CUMM (4-12)
[2020-06-23 22:46] LABS: Hemoglobin 6.7 GM/DL (12.0-16.0)
[2020-06-24] MEDS ORDERED: ACETAMINOPHEN 325 MG TABLET PO PRN (00:19)
[2020-06-24] MEDS ORDERED: ONDANSETRON 4 MG/2 ML VIAL IV PRN (00:19)
[2020-06-24] MEDS ORDERED: DEXTROSE 50% 25 GM/50 ML VIAL IV PRN (00:19)
[2020-06-24] MEDS ORDERED: GLUCAGON 1 MG VIAL IM PRN (00:19)
[2020-06-24] MEDS ORDERED: SODIUM CHLORIDE 0.9% 1,000 ML IV PRN (00:25)
[2020-06-24] MEDS: LACTULOSE 20 GM/30 ML UDCUP PO SCH ×5 (01:43→18:13)
[2020-06-24 03:44] LABS: Anisocytosis 2+; Band Neutrophils 3 % (0-10); Eosinophils 4 % (0-10); Hypochromasia 1+; Lymphocytes 13 % (20-55); Macrocytosis 2+; Ovalocytes Few; Platelet Estimate Decreased; Reactive Lymphocytes Few; Segmented Neutrophils 63 % (50-85); Total Cells Counted 100
[2020-06-24 07:13] LABS: Basophils % 0.8 % (0.0-0.8); Eosinophils # 0.1 10*3/uL (0.0-0.87); Eosinophils % 2.5 % (0.00-10.9); Hematocrit 29.5 VOL% (35.7-47.0); Immature Granulocytes % 0.3 %; Immature Granulocytes Absolute 0.01 #; Lymphocytes # 0.6 10*3/uL (1.4-4.0); Lymphocytes % 16.6 % (21.3-54.2); Mean Corpuscular HGB Conc 32.2 GM/DL (32-36); Mean Platelet Volume 11.6 FL (9.6-12.0); Monocytes % 12.4 % (1.7-12.7); Neutrophils % 67.4 % (38.7-73.9); Platelet Count 116 T/CUMM (130-400); Red Blood Count 3.04 MC/CUMM (3.8-5.5); Red Cell Distribution Width 17.1 % (9.3-17.3); White Blood Count 3.6 T/CUMM (4-12)
[2020-06-24 07:16] LABS: Hemoglobin 9.5 GM/DL (12.0-16.0)
[2020-06-24 07:30] LABS: Albumin 1.9 G/DL (3.4-5.0); Calcium 8.7 MG/DL (8.5-10.1); Osmolality,Calculated 277.4 MOS/KG (273-304); Total Protein 7.8 G/DL (6.4-8.3)
[2020-06-24] MEDS: PANTOPRAZOLE 40 MG TABLET PO SCH ×2 (08:52→20:01)
[2020-06-24] MEDS: carvediloL 3.125 MG TABLET PO SCH ×2 (08:52→17:18)
[2020-06-24] MEDS: FOLIC ACID 1 MG TABLET PO SCH (08:52)
[2020-06-24] MEDS: SEVELAMER CARBONATE 800 MG TABLET PO SCH ×3 (08:52→17:18)
[2020-06-24] MEDS: FERROUS SULFATE 325 MG TABLET PO SCH ×2 (08:52→20:00)
[2020-06-24] MEDS: RIFAXIMIN 550 MG TABLET PO SCH ×2 (08:52→20:01)
[2020-06-24] MEDS ORDERED: DOCUSATE SODIUM 100 MG CAPSULE PO PRN (09:00)
[2020-06-25] MEDS: LACTULOSE 20 GM/30 ML UDCUP PO SCH ×3 (01:00→13:35)
[2020-06-25 08:26] LABS: Calcium 9.1 MG/DL (8.5-10.1); Osmolality,Calculated 279.5 MOS/KG (273-304)
[2020-06-25 08:37] LABS: Basophils % 1.1 % (0.0-0.8); Eosinophils # 0.1 10*3/uL (0.0-0.87); Eosinophils % 2.9 % (0.00-10.9); Hematocrit 26.8 VOL% (35.7-47.0); Hemoglobin 8.6 GM/DL (12.0-16.0); Immature Granulocytes % 0.6 %; Immature Granulocytes Absolute 0.02 #; Lymphocytes # 0.6 10*3/uL (1.4-4.0); Lymphocytes % 17.2 % (21.3-54.2); Mean Corpuscular HGB Conc 32.1 GM/DL (32-36); Mean Corpuscular Volume 96.8 FL (87-102); Mean Platelet Volume 12.1 FL (9.6-12.0); Monocytes % 14.7 % (1.7-12.7); Neutrophils % 63.5 % (38.7-73.9); Platelet Count 111 T/CUMM (130-400); Red Blood Count 2.77 MC/CUMM (3.8-5.5); Red Cell Distribution Width 16.8 % (9.3-17.3); White Blood Count 3.5 T/CUMM (4-12)
[2020-06-25] MEDS: RIFAXIMIN 550 MG TABLET PO SCH (08:47)
[2020-06-25] MEDS: PANTOPRAZOLE 40 MG TABLET PO SCH (08:47)
[2020-06-25] MEDS: carvediloL 3.125 MG TABLET PO SCH (08:48)
[2020-06-25] MEDS: SEVELAMER CARBONATE 800 MG TABLET PO SCH ×2 (08:48→12:46)
[2020-06-25] MEDS: FERROUS SULFATE 325 MG TABLET PO SCH (08:48)
[2020-06-25] MEDS: FOLIC ACID 1 MG TABLET PO SCH (08:48)
[2020-06-25 12:38] VITALS: BP 125/61
== END 2020-06-25 13:43 | disposition home or self-care (01) ==
LOC: N.ED 17:45 → N.EDINP 17:45 → SUATTDRO 06-24 00:18 → N.EDINP 06-24 01:46 → N.TELEN 06-24 03:04
PROVIDERS: ADMIT Family Medicine; ATTEND Internal Medicine

== ENCOUNTER 2020-07-09 16:54 | Inpatient (IN) ==
[2020-07-09 18:52] LABS: Basophils % 0.3 % (0.0-0.8); Hematocrit 32.1 VOL% (35.7-47.0); Hemoglobin 10.1 GM/DL (12.0-16.0); Immature Granulocytes % 1.1 %; Immature Granulocytes Absolute 0.13 #; Lymphocytes # 0.2 10*3/uL (1.4-4.0); Lymphocytes % 1.8 % (21.3-54.2); Mean Corpuscular HGB Conc 31.5 GM/DL (32-36); Mean Corpuscular Volume 98.5 FL (87-102); Mean Platelet Volume 11.5 FL (9.6-12.0); Monocytes % 10.1 % (1.7-12.7); NRBC # 0.04 10*3/uL; Neutrophils % 86.7 % (38.7-73.9); Platelet Count 130 T/CUMM (130-400); Red Blood Count 3.26 MC/CUMM (3.8-5.5); Red Cell Distribution Width 17.8 % (9.3-17.3); White Blood Count 11.8 T/CUMM (4-12)
[2020-07-09 19:01] LABS: INR 1.1; PT Patient Result 12.1 SECS (9.8-11.9)
[2020-07-09 19:19] LABS: Band Neutrophils 2 % (0-10); Lymphocytes 4 % (20-55); Nucleated Red Blood Cells 1 (0-5); Segmented Neutrophils 89 % (50-85); Total Cells Counted 100
[2020-07-09 19:21] LABS: Hypochromasia 2+; Macrocytosis 1+; Platelet Estimate Adequate
[2020-07-09 19:22] LABS: Polychromasia 2+; Spherocytes 1+
[2020-07-09] MEDS ORDERED: LEVOFLOXACIN INJ 500 MG in PREMIX 1 EACH IV STA (19:36)
[2020-07-09 19:39] LABS: Albumin 2.1 G/DL (3.4-5.0); Bilirubin,Total 1.1 MG/DL (0.2-1.0); Calcium 8.4 MG/DL (8.5-10.1); Ferritin 2787.5 ng/ml (8-252); Osmolality,Calculated 288.3 MOS/KG (273-304); Total Protein 7.7 G/DL (6.4-8.3)
[2020-07-09] MEDS ORDERED: VANCOMYCIN INJ 1,000 MG in SODIUM CHLORIDE 0.9% 250 ML IV ONE (20:20)
[2020-07-09] MEDS ORDERED: GLUCAGON 1 MG VIAL IM PRN (20:38)
[2020-07-09] MEDS ORDERED: DEXTROSE 50% 25 GM/50 ML VIAL IV PRN (20:38)
[2020-07-09] MEDS ORDERED: HEPARIN 5,000 UNIT/1 ML VIAL SUBCUT SCH (21:00)
[2020-07-09] MEDS: cefTRIAXone 2,000 MG in SYRINGE 1 EACH IV SCH (21:50)
[2020-07-10] MEDS: INSULIN LISPRO 100 UNIT/ML SUBCUT SCH ×4 (00:19→18:11)
[2020-07-10] MEDS: LACTULOSE 20 GM/30 ML UDCUP PO SCH ×5 (01:27→21:18)
[2020-07-10] MEDS: carvediloL 3.125 MG TABLET PO SCH ×3 (01:28→17:52)
[2020-07-10 01:30] LABS: Basophils % 0.3 % (0.0-0.8); Eosinophils % 0.1 % (0.00-10.9); Hematocrit 35.2 VOL% (35.7-47.0); Immature Granulocytes % 1.4 %; Immature Granulocytes Absolute 0.17 #; Lymphocytes # 0.2 10*3/uL (1.4-4.0); Lymphocytes % 1.8 % (21.3-54.2); Mean Corpuscular HGB Conc 31.3 GM/DL (32-36); Mean Corpuscular Volume 101.1 FL (87-102); Mean Platelet Volume 13.2 FL (9.6-12.0); Monocytes % 9.3 % (1.7-12.7); NRBC # 0.03 10*3/uL; Neutrophils % 87.1 % (38.7-73.9); Platelet Count 93 T/CUMM (130-400); Red Blood Count 3.48 MC/CUMM (3.8-5.5); Red Cell Distribution Width 18.1 % (9.3-17.3); White Blood Count 11.8 T/CUMM (4-12)
[2020-07-10 01:32] LABS: Albumin 1.7 G/DL (3.4-5.0); Bilirubin,Total 1.1 MG/DL (0.2-1.0); Calcium 8.7 MG/DL (8.5-10.1); Osmolality,Calculated 286.4 MOS/KG (273-304); Total Protein 7.6 G/DL (6.4-8.3)
[2020-07-10 03:19] LABS: Anisocytosis 1+; Band Neutrophils 2 % (0-10); Eosinophils 1 % (0-10); Lymphocytes 2 % (20-55); Macrocytosis 1+; Nucleated Red Blood Cells 1 (0-5); Ovalocytes 1+; Platelet Estimate Decreased; Segmented Neutrophils 86 % (50-85); Total Cells Counted 100
[2020-07-10] MEDS: FOLIC ACID 1 MG TABLET PO SCH (09:29)
[2020-07-10] MEDS: PANTOPRAZOLE 40 MG TABLET PO SCH (09:29)
[2020-07-10] MEDS: RIFAXIMIN 550 MG TABLET PO SCH ×2 (09:29→22:53)
[2020-07-10] MEDS: AZITHROMYCIN 250 MG TABLET PO SCH (09:30)
[2020-07-10] MEDS ORDERED: AZITHROMYCIN INJ 500 MG in SODIUM CHLORIDE 0.9% 250 ML IV SCH (21:00)
[2020-07-10] MEDS: cefTRIAXone 2,000 MG in SYRINGE 1 EACH IV SCH (21:17)
[2020-07-11] MEDS: INSULIN LISPRO 100 UNIT/ML SUBCUT SCH ×4 (00:46→17:33)
[2020-07-11] MEDS: LACTULOSE 20 GM/30 ML UDCUP PO SCH ×4 (03:59→22:10)
[2020-07-11] MEDS: PANTOPRAZOLE 40 MG TABLET PO SCH (08:47)
[2020-07-11] MEDS: carvediloL 3.125 MG TABLET PO SCH ×2 (08:47→17:10)
[2020-07-11] MEDS: FOLIC ACID 1 MG TABLET PO SCH (08:47)
[2020-07-11] MEDS: RIFAXIMIN 550 MG TABLET PO SCH ×2 (08:48→22:11)
[2020-07-11] MEDS: AZITHROMYCIN 250 MG TABLET PO SCH (08:48)
[2020-07-11] MEDS ORDERED: VANCOMYCIN INJ 500 MG in SODIUM CHLORIDE 0.9% 100 ML IV PRN (09:49)
[2020-07-11] MEDS ORDERED: VANCOMYCIN INJ 1,000 MG in SODIUM CHLORIDE 0.9% 250 ML IV ONE (11:00)
[2020-07-11] MEDS: cefTRIAXone 2,000 MG in SYRINGE 1 EACH IV SCH (22:11)
[2020-07-12] MEDS: INSULIN LISPRO 100 UNIT/ML SUBCUT SCH ×4 (00:48→18:02)
[2020-07-12] MEDS: LACTULOSE 20 GM/30 ML UDCUP PO SCH ×4 (04:25→21:08)
[2020-07-12] MEDS: RIFAXIMIN 550 MG TABLET PO SCH ×3 (12:31→21:08)
[2020-07-12] MEDS: PANTOPRAZOLE 40 MG TABLET PO SCH (12:32)
[2020-07-12] MEDS: AZITHROMYCIN 250 MG TABLET PO SCH (12:32)
[2020-07-12] MEDS: FOLIC ACID 1 MG TABLET PO SCH (12:32)
[2020-07-12] MEDS: carvediloL 3.125 MG TABLET PO SCH ×2 (12:32→16:46)
[2020-07-12] MEDS ORDERED: VANCOMYCIN INJ 500 MG in SODIUM CHLORIDE 0.9% 100 ML IV ONE (17:00)
[2020-07-12] MEDS: cefTRIAXone 1,000 MG in SYRINGE 1 EACH IV SCH (20:47)
[2020-07-13] MEDS: INSULIN LISPRO 100 UNIT/ML SUBCUT SCH ×4 (02:18→17:43)
[2020-07-13] MEDS: LACTULOSE 20 GM/30 ML UDCUP PO SCH ×4 (03:21→20:26)
[2020-07-13] MEDS: carvediloL 3.125 MG TABLET PO SCH ×2 (08:54→17:39)
[2020-07-13] MEDS: RIFAXIMIN 550 MG TABLET PO SCH ×2 (08:55→20:26)
[2020-07-13] MEDS: PANTOPRAZOLE 40 MG TABLET PO SCH (08:55)
[2020-07-13] MEDS: AZITHROMYCIN 250 MG TABLET PO SCH (08:55)
[2020-07-13] MEDS: FOLIC ACID 1 MG TABLET PO SCH (08:55)
[2020-07-13] MEDS: cefTRIAXone 1,000 MG in SYRINGE 1 EACH IV SCH (20:51)
[2020-07-14] MEDS: INSULIN LISPRO 100 UNIT/ML SUBCUT SCH ×4 (01:03→18:02)
[2020-07-14] MEDS: LACTULOSE 20 GM/30 ML UDCUP PO SCH ×4 (03:10→21:08)
[2020-07-14 05:11] LABS: Basophils % 0.4 % (0.0-0.8); Eosinophils # 0.1 10*3/uL (0.0-0.87); Eosinophils % 1.3 % (0.00-10.9); Hematocrit 32.3 VOL% (35.7-47.0); Hemoglobin 10.3 GM/DL (12.0-16.0); Immature Granulocytes % 0.4 %; Immature Granulocytes Absolute 0.03 #; Lymphocytes # 0.7 10*3/uL (1.4-4.0); Lymphocytes % 10.2 % (21.3-54.2); Mean Corpuscular HGB Conc 31.9 GM/DL (32-36); Mean Corpuscular Volume 98.5 FL (87-102); Mean Platelet Volume 11.9 FL (9.6-12.0); Monocytes % 11.8 % (1.7-12.7); Neutrophils % 75.9 % (38.7-73.9); Platelet Count 113 T/CUMM (130-400); Red Blood Count 3.28 MC/CUMM (3.8-5.5); Red Cell Distribution Width 16.5 % (9.3-17.3); White Blood Count 6.8 T/CUMM (4-12)
[2020-07-14 05:29] LABS: Calcium 8.5 MG/DL (8.5-10.1); Osmolality,Calculated 279.8 MOS/KG (273-304)
[2020-07-14] MEDS ORDERED: VANCOMYCIN INJ 500 MG in SODIUM CHLORIDE 0.9% 100 ML IV ONE (12:00)
[2020-07-14] MEDS: RIFAXIMIN 550 MG TABLET PO SCH ×2 (12:24→21:08)
[2020-07-14] MEDS: FOLIC ACID 1 MG TABLET PO SCH (12:24)
[2020-07-14] MEDS: carvediloL 3.125 MG TABLET PO SCH ×2 (12:24→17:16)
[2020-07-14] MEDS: PANTOPRAZOLE 40 MG TABLET PO SCH (12:24)
[2020-07-14] MEDS: AZITHROMYCIN 250 MG TABLET PO SCH (12:57)
[2020-07-14] MEDS ORDERED: AZITHROMYCIN 250 MG TABLET PO ONE (13:00)
[2020-07-14] MEDS: cefTRIAXone 1,000 MG in SYRINGE 1 EACH IV SCH (21:07)
[2020-07-15] MEDS: INSULIN LISPRO 100 UNIT/ML SUBCUT SCH ×4 (02:08→18:07)
[2020-07-15] MEDS: LACTULOSE 20 GM/30 ML UDCUP PO SCH ×5 (05:43→21:14)
[2020-07-15 05:57] LABS: Albumin 1.7 G/DL (3.4-5.0); Bilirubin,Total 0.7 MG/DL (0.2-1.0); Calcium 8.2 MG/DL (8.5-10.1); Osmolality,Calculated 274.8 MOS/KG (273-304)
[2020-07-15 06:19] LABS: Basophils % 0.6 % (0.0-0.8); Eosinophils # 0.1 10*3/uL (0.0-0.87); Eosinophils % 1.7 % (0.00-10.9); Hematocrit 32.5 VOL% (35.7-47.0); Hemoglobin 10.3 GM/DL (12.0-16.0); Immature Granulocytes % 0.8 %; Immature Granulocytes Absolute 0.05 #; Lymphocytes # 0.9 10*3/uL (1.4-4.0); Lymphocytes % 13.1 % (21.3-54.2); Mean Corpuscular HGB Conc 31.7 GM/DL (32-36); Mean Corpuscular Volume 99.1 FL (87-102); Mean Platelet Volume 11.9 FL (9.6-12.0); Neutrophils % 69.8 % (38.7-73.9); Platelet Count 130 T/CUMM (130-400); Red Blood Count 3.28 MC/CUMM (3.8-5.5); Red Cell Distribution Width 17.5 % (9.3-17.3); White Blood Count 6.6 T/CUMM (4-12)
[2020-07-15 06:40] LABS: Hypochromasia 1+; Microcytosis 1+
[2020-07-15] MEDS: RIFAXIMIN 550 MG TABLET PO SCH ×2 (08:19→21:14)
[2020-07-15] MEDS: FOLIC ACID 1 MG TABLET PO SCH (08:19)
[2020-07-15] MEDS: PANTOPRAZOLE 40 MG TABLET PO SCH (08:19)
[2020-07-15] MEDS: carvediloL 3.125 MG TABLET PO SCH ×2 (08:19→16:55)
[2020-07-15] MEDS: cefTRIAXone 1,000 MG in SYRINGE 1 EACH IV SCH (21:14)
[2020-07-16] MEDS: INSULIN LISPRO 100 UNIT/ML SUBCUT SCH ×4 (01:31→18:35)
[2020-07-16] MEDS: LACTULOSE 20 GM/30 ML UDCUP PO SCH ×4 (03:12→21:57)
[2020-07-16] MEDS: PANTOPRAZOLE 40 MG TABLET PO SCH (08:29)
[2020-07-16] MEDS: carvediloL 3.125 MG TABLET PO SCH ×2 (08:29→17:32)
[2020-07-16] MEDS: FOLIC ACID 1 MG TABLET PO SCH (08:29)
[2020-07-16] MEDS: RIFAXIMIN 550 MG TABLET PO SCH ×2 (08:29→21:57)
[2020-07-16] MEDS: cefTRIAXone 1,000 MG in SYRINGE 1 EACH IV SCH (21:56)
[2020-07-17] MEDS: LACTULOSE 20 GM/30 ML UDCUP PO SCH ×3 (04:19→16:22)
[2020-07-17] MEDS: INSULIN LISPRO 100 UNIT/ML SUBCUT SCH ×4 (04:19→17:21)
[2020-07-17 05:47] LABS: Basophils # 0.1 10*3/uL (0.0-0.2); Basophils % 1.2 % (0.0-0.8); Eosinophils # 0.1 10*3/uL (0.0-0.87); Eosinophils % 2.2 % (0.00-10.9); Hematocrit 31.8 VOL% (35.7-47.0); Immature Granulocytes % 1.2 %; Immature Granulocytes Absolute 0.06 #; Lymphocytes # 0.9 10*3/uL (1.4-4.0); Lymphocytes % 17.1 % (21.3-54.2); Mean Corpuscular HGB Conc 31.4 GM/DL (32-36); Mean Corpuscular Volume 99.1 FL (87-102); Mean Platelet Volume 11.6 FL (9.6-12.0); Monocytes % 14.1 % (1.7-12.7); Neutrophils % 64.2 % (38.7-73.9); Platelet Count 156 T/CUMM (130-400); Red Blood Count 3.21 MC/CUMM (3.8-5.5); Red Cell Distribution Width 18.1 % (9.3-17.3); White Blood Count 5.1 T/CUMM (4-12)
[2020-07-17] MEDS ORDERED: ACETAMINOPHEN 325 MG TABLET PO PRN (05:58)
[2020-07-17 06:11] LABS: Calcium 8.3 MG/DL (8.5-10.1)
[2020-07-17] MEDS: PANTOPRAZOLE 40 MG TABLET PO SCH (08:48)
[2020-07-17] MEDS: carvediloL 3.125 MG TABLET PO SCH ×2 (08:48→16:21)
[2020-07-17] MEDS: RIFAXIMIN 550 MG TABLET PO SCH (08:48)
[2020-07-17] MEDS: FOLIC ACID 1 MG TABLET PO SCH (08:49)
[2020-07-17] MEDS ORDERED: VANCOMYCIN INJ 500 MG in SODIUM CHLORIDE 0.9% 100 ML IV ONE (12:00)
[2020-07-17 16:40] VITALS: BP 90/63
== END 2020-07-17 18:27 | disposition home health service (06) | DRG 871 ==
LOC: EDBD → EDUNIT# → N.ED 16:54 → SUATTDRO 20:15 → N.EDINP 20:15 → N.5E 22:51
PROVIDERS: ADMIT Internal Medicine Geriatric Medicine; ATTEND Internal Medicine

== ENCOUNTER 2020-08-07 17:01 | Inpatient (IN) ==
[2020-08-07 17:52] LABS: Basophils # 0.1 10*3/uL (0.0-0.2); Basophils % 1.4 % (0.0-0.8); Eosinophils # 0.2 10*3/uL (0.0-0.87); Hematocrit 37.2 VOL% (35.7-47.0); Hemoglobin 11.7 GM/DL (12.0-16.0); Immature Granulocytes % 0.2 %; Immature Granulocytes Absolute 0.01 #; Lymphocytes # 0.7 10*3/uL (1.4-4.0); Lymphocytes % 15.3 % (21.3-54.2); Mean Corpuscular HGB Conc 31.5 GM/DL (32-36); Mean Corpuscular Volume 97.6 FL (87-102); Mean Platelet Volume 11.4 FL (9.6-12.0); Neutrophils % 59.1 % (38.7-73.9); Platelet Count 113 T/CUMM (130-400); Red Blood Count 3.81 MC/CUMM (3.8-5.5); Red Cell Distribution Width 16.7 % (9.3-17.3); White Blood Count 4.2 T/CUMM (4-12)
[2020-08-07 18:01] LABS: INR 1.2; PT Patient Result 12.4 SECS (9.8-11.9)
[2020-08-07 18:21] LABS: Albumin 2.4 G/DL (3.4-5.0); Bilirubin,Total 1.3 MG/DL (0.2-1.0); Calcium 8.8 MG/DL (8.5-10.1); Osmolality,Calculated 272.7 MOS/KG (273-304); Total Protein 8.3 G/DL (6.4-8.3)
[2020-08-07] MEDS ORDERED: hydrALAZINE 20 MG/1 ML VIAL ONE (18:51)
[2020-08-07] MEDS ORDERED: hydrALAZINE 20 MG/1 ML VIAL IV STA (18:57)
[2020-08-07 19:09] LABS: Eosinophils 1 % (0-10); Hypochromasia 2+; Lymphocytes 11 % (20-55); Macrocytosis 1+; Segmented Neutrophils 64 % (50-85); Total Cells Counted 100
[2020-08-07 19:10] LABS: Polychromasia 1+
[2020-08-07 19:11] LABS: Platelet Estimate Adequate
[2020-08-07] MEDS ORDERED: ONDANSETRON 4 MG/2 ML VIAL IV PRN (20:03)
[2020-08-07] MEDS ORDERED: hydrALAZINE 20 MG/1 ML VIAL IV PRN (20:27)
[2020-08-07] MEDS ORDERED: DEXTROSE 50% 25 GM/50 ML VIAL IV PRN (20:28)
[2020-08-07] MEDS ORDERED: GLUCAGON 1 MG VIAL IM PRN (20:28)
[2020-08-08] MEDS: RIFAXIMIN 550 MG TABLET PO SCH ×3 (00:11→20:45)
[2020-08-08] MEDS: LACTULOSE 20 GM/30 ML UDCUP PO SCH ×4 (00:11→17:38)
[2020-08-08] MEDS: POTASSIUM CHLORIDE 20 MEQ TABLET PO PRN ×3 (00:12→06:39)
[2020-08-08] MEDS: INSULIN LISPRO 100 UNIT/ML SUBCUT SCH ×4 (00:12→17:10)
[2020-08-08 06:48] LABS: Basophils # 0.1 10*3/uL (0.0-0.2); Basophils % 1.6 % (0.0-0.8); Eosinophils # 0.1 10*3/uL (0.0-0.87); Eosinophils % 1.8 % (0.00-10.9); Hematocrit 38.1 VOL% (35.7-47.0); Hemoglobin 12.1 GM/DL (12.0-16.0); Immature Granulocytes % 0.5 %; Immature Granulocytes Absolute 0.02 #; Lymphocytes # 0.6 10*3/uL (1.4-4.0); Lymphocytes % 13.9 % (21.3-54.2); Mean Corpuscular HGB Conc 31.8 GM/DL (32-36); Mean Corpuscular Volume 97.4 FL (87-102); Mean Platelet Volume 12.2 FL (9.6-12.0); Monocytes % 17.8 % (1.7-12.7); Neutrophils % 64.4 % (38.7-73.9); Platelet Count 144 T/CUMM (130-400); Red Blood Count 3.91 MC/CUMM (3.8-5.5); Red Cell Distribution Width 17.1 % (9.3-17.3); White Blood Count 4.4 T/CUMM (4-12)
[2020-08-08 07:14] LABS: Calcium 9.1 MG/DL (8.5-10.1); Osmolality,Calculated 275.7 MOS/KG (273-304)
[2020-08-08 08:04] LABS: Hypochromasia 2+; Lymphocytes 10 % (20-55); Polychromasia Slight; Segmented Neutrophils 75 % (50-85); Spherocytes 1+; Target Cells Few; Total Cells Counted 100
[2020-08-08 08:05] LABS: Ovalocytes Few; Platelet Estimate Adequate; Tear Drop Cells Few
[2020-08-08] MEDS: FOLIC ACID 1 MG TABLET PO SCH (09:55)
[2020-08-08] MEDS: amLODIPine 5 MG TABLET PO SCH (09:55)
[2020-08-08] MEDS: carvediloL 3.125 MG TABLET PO SCH ×2 (09:55→16:55)
[2020-08-08] MEDS: LOSARTAN 50 MG TABLET PO SCH (14:20)
[2020-08-09] MEDS: INSULIN LISPRO 100 UNIT/ML SUBCUT SCH ×4 (00:02→17:33)
[2020-08-09] MEDS: LACTULOSE 20 GM/30 ML UDCUP PO SCH ×4 (00:02→17:40)
[2020-08-09 05:36] LABS: Basophils # 0.1 10*3/uL (0.0-0.2); Basophils % 1.9 % (0.0-0.8); Eosinophils # 0.2 10*3/uL (0.0-0.87); Eosinophils % 4.6 % (0.00-10.9); Hematocrit 34.8 VOL% (35.7-47.0); Hemoglobin 10.9 GM/DL (12.0-16.0); Immature Granulocytes % 0.5 %; Immature Granulocytes Absolute 0.02 #; Lymphocytes # 0.7 10*3/uL (1.4-4.0); Lymphocytes % 17.7 % (21.3-54.2); Mean Corpuscular HGB Conc 31.3 GM/DL (32-36); Mean Corpuscular Volume 99.7 FL (87-102); Monocytes % 20.4 % (1.7-12.7); Neutrophils % 54.9 % (38.7-73.9); Platelet Count 145 T/CUMM (130-400); Red Blood Count 3.49 MC/CUMM (3.8-5.5); Red Cell Distribution Width 17.3 % (9.3-17.3); White Blood Count 4.1 T/CUMM (4-12)
[2020-08-09 06:06] LABS: Calcium 8.7 MG/DL (8.5-10.1); Osmolality,Calculated 285.3 MOS/KG (273-304)
[2020-08-09 07:23] LABS: Segmented Neutrophils 55 % (50-85); Total Cells Counted 100
[2020-08-09 07:25] LABS: Anisocytosis 1+; Eosinophils 3 % (0-10); Hypochromasia 1+; Lymphocytes 19 % (20-55); Macrocytosis 1+; Platelet Estimate Adequate; Target Cells 2+
[2020-08-09] MEDS: carvediloL 3.125 MG TABLET PO SCH ×2 (09:34→17:40)
[2020-08-09] MEDS: RIFAXIMIN 550 MG TABLET PO SCH ×2 (09:34→20:55)
[2020-08-09] MEDS: amLODIPine 5 MG TABLET PO SCH (09:34)
[2020-08-09] MEDS: FOLIC ACID 1 MG TABLET PO SCH (09:34)
[2020-08-09] MEDS: LOSARTAN 50 MG TABLET PO SCH (09:34)
[2020-08-09] MEDS ORDERED: VANCOMYCIN INJ 500 MG in SODIUM CHLORIDE 0.9% 100 ML IV ONE (17:00)
[2020-08-09] MEDS: MENTHOL/ZINC OXIDE OINT 71 GM JAR TOP SCH (20:55)
[2020-08-10] MEDS: LACTULOSE 20 GM/30 ML UDCUP PO SCH ×3 (00:12→13:00)
[2020-08-10] MEDS: INSULIN LISPRO 100 UNIT/ML SUBCUT SCH ×3 (00:12→12:57)
[2020-08-10 05:48] LABS: Basophils % 1.2 % (0.0-0.8); Eosinophils # 0.1 10*3/uL (0.0-0.87); Eosinophils % 4.1 % (0.00-10.9); Hematocrit 38.6 VOL% (35.7-47.0); Hemoglobin 11.9 GM/DL (12.0-16.0); Immature Granulocytes % 0.3 %; Immature Granulocytes Absolute 0.01 #; Lymphocytes # 0.7 10*3/uL (1.4-4.0); Lymphocytes % 20.1 % (21.3-54.2); Mean Corpuscular HGB Conc 30.8 GM/DL (32-36); Mean Corpuscular Volume 101.3 FL (87-102); Mean Platelet Volume 12.1 FL (9.6-12.0); Monocytes % 17.2 % (1.7-12.7); Neutrophils % 57.1 % (38.7-73.9); Platelet Count 123 T/CUMM (130-400); Red Blood Count 3.81 MC/CUMM (3.8-5.5); Red Cell Distribution Width 17.4 % (9.3-17.3); White Blood Count 3.4 T/CUMM (4-12)
[2020-08-10 06:20] LABS: Calcium 8.9 MG/DL (8.5-10.1); Osmolality,Calculated 287.8 MOS/KG (273-304)
[2020-08-10 06:40] LABS: Eosinophils 12 % (0-10); Hypochromasia 2+; Lymphocytes 13 % (20-55); Macrocytosis 1+; Segmented Neutrophils 56 % (50-85); Total Cells Counted 100
[2020-08-10 06:41] LABS: Polychromasia Slight
[2020-08-10 06:51] LABS: Platelet Estimate Adequate
[2020-08-10] MEDS: FOLIC ACID 1 MG TABLET PO SCH (09:21)
[2020-08-10] MEDS: carvediloL 3.125 MG TABLET PO SCH (09:21)
[2020-08-10] MEDS: MENTHOL/ZINC OXIDE OINT 71 GM JAR TOP SCH (09:21)
[2020-08-10] MEDS: LOSARTAN 50 MG TABLET PO SCH (09:21)
[2020-08-10] MEDS: amLODIPine 5 MG TABLET PO SCH (09:21)
[2020-08-10] MEDS: RIFAXIMIN 550 MG TABLET PO SCH (09:21)
[2020-08-10 11:20] VITALS: BP 151/50
== END 2020-08-10 15:29 | disposition home or self-care (01) | DRG 441 ==
LOC: EDUNIT# → N.ED 17:01 → N.EDINP 20:03 → SUATTDRO 20:03 → N.3E 21:12
PROVIDERS: ADMIT Internal Medicine; ATTEND Internal Medicine

== ENCOUNTER 2020-08-16 09:54 | Inpatient (IN) ==
[2020-08-16] MEDS ORDERED: SODIUM CHLORIDE 0.9% 1,000 ML IV STA (10:16)
[2020-08-16 11:03] LABS: Basophils # 0.1 10*3/uL (0.0-0.2); Basophils % 1.1 % (0.0-0.8); Eosinophils # 0.1 10*3/uL (0.0-0.87); Eosinophils % 1.7 % (0.00-10.9); Hematocrit 38.2 VOL% (35.7-47.0); Hemoglobin 12.1 GM/DL (12.0-16.0); Immature Granulocytes % 0.2 %; Immature Granulocytes Absolute 0.01 #; Lymphocytes # 0.5 10*3/uL (1.4-4.0); Lymphocytes % 11.1 % (21.3-54.2); Mean Corpuscular HGB Conc 31.7 GM/DL (32-36); Mean Platelet Volume 12.3 FL (9.6-12.0); Monocytes % 12.2 % (1.7-12.7); Neutrophils % 73.7 % (38.7-73.9); Platelet Count 106 T/CUMM (130-400); Red Blood Count 3.86 MC/CUMM (3.8-5.5); Red Cell Distribution Width 17.8 % (9.3-17.3); White Blood Count 4.7 T/CUMM (4-12)
[2020-08-16 11:22] LABS: Hypochromasia 2+; Macrocytosis 1+
[2020-08-16 11:23] LABS: Platelet Estimate Decreased
[2020-08-16 11:32] LABS: Prolactin 16.6 NG/ML
[2020-08-16 11:33] LABS: Alanine Aminotransferase 17 U/L (13-56); Albumin 2.4 G/DL (3.4-5.0); Alkaline Phosphatase 157 U/L (45-117); Aspartate Amino Transferase 23 U/L (0-37); Blood Urea Nitrogen 28 MG/DL (7-18); Calcium 9.1 MG/DL (8.5-10.1); Estimated Glom Filtration Rate 5 ML/MIN; Glucose 100 MG/DL (74-106); Osmolality,Calculated 288.1 MOS/KG (273-304); Total Protein 7.9 G/DL (6.4-8.3)
[2020-08-16] MEDS ORDERED: ONDANSETRON 4 MG/2 ML VIAL IV PRN (12:30)
[2020-08-16] MEDS ORDERED: ACETAMINOPHEN 325 MG TABLET PO PRN (12:30)
[2020-08-16] MEDS ORDERED: GLUCAGON 1 MG VIAL IM PRN (12:30)
[2020-08-16] MEDS ORDERED: DEXTROSE 50% 25 GM/50 ML VIAL IV PRN (12:30)
[2020-08-16] MEDS ORDERED: ALBUTEROL 2.5 MG/3 ML NEB RESP TX PRN (12:30)
[2020-08-16 13:48] LABS: Albumin 2.2 G/DL (3.4-5.0); Bilirubin,Total 1.4 MG/DL (0.2-1.0); Calcium 8.9 MG/DL (8.5-10.1); Osmolality,Calculated 284.4 MOS/KG (273-304); Total Protein 7.5 G/DL (6.4-8.3)
[2020-08-16] MEDS: DEXTROSE 5% NACL 0.9% 1,000 ML IV SCH (15:20)
[2020-08-16] MEDS: LACTULOSE 20 GM/30 ML UDCUP PO SCH ×2 (15:20→21:37)
[2020-08-16] MEDS: SEVELAMER CARBONATE 800 MG TABLET PO SCH (17:14)
[2020-08-16] MEDS: carvediloL 3.125 MG TABLET PO SCH (21:37)
[2020-08-16] MEDS: RIFAXIMIN 550 MG TABLET PO SCH (21:37)
[2020-08-16] MEDS: MENTHOL/ZINC OXIDE OINT 71 GM JAR TOP SCH (21:38)
[2020-08-17 05:18] LABS: Basophils # 0.1 10*3/uL (0.0-0.2); Basophils % 1.1 % (0.0-0.8); Eosinophils # 0.2 10*3/uL (0.0-0.87); Eosinophils % 2.7 % (0.00-10.9); Hematocrit 37.1 VOL% (35.7-47.0); Hemoglobin 11.5 GM/DL (12.0-16.0); Immature Granulocytes % 0.4 %; Immature Granulocytes Absolute 0.02 #; Lymphocytes # 0.6 10*3/uL (1.4-4.0); Lymphocytes % 11.3 % (21.3-54.2); Mean Corpuscular Volume 98.4 FL (87-102); Mean Platelet Volume 12.3 FL (9.6-12.0); Monocytes % 13.6 % (1.7-12.7); Neutrophils % 70.9 % (38.7-73.9); Platelet Count 105 T/CUMM (130-400); Red Blood Count 3.77 MC/CUMM (3.8-5.5); Red Cell Distribution Width 17.6 % (9.3-17.3); White Blood Count 5.6 T/CUMM (4-12)
[2020-08-17 05:43] LABS: Albumin 2.2 G/DL (3.4-5.0); Bilirubin,Total 1.1 MG/DL (0.2-1.0); Calcium 8.7 MG/DL (8.5-10.1); Osmolality,Calculated 298.8 MOS/KG (273-304); Total Protein 7.4 G/DL (6.4-8.3)
[2020-08-17] MEDS: LACTULOSE 20 GM/30 ML UDCUP PO SCH ×3 (06:25→21:18)
[2020-08-17] MEDS: DEXTROSE 5% NACL 0.9% 1,000 ML IV SCH ×3 (06:26→19:03)
[2020-08-17] MEDS ORDERED: DEXTROSE 50% 25 GM/50 ML VIAL IV PRN (08:31)
[2020-08-17] MEDS ORDERED: GLUCAGON 1 MG VIAL IM PRN (08:31)
[2020-08-17] MEDS: SEVELAMER CARBONATE 800 MG TABLET PO SCH ×4 (11:00→16:41)
[2020-08-17] MEDS: LOSARTAN 50 MG TABLET PO SCH (11:04)
[2020-08-17] MEDS: FOLIC ACID 1 MG TABLET PO SCH (11:04)
[2020-08-17] MEDS: RIFAXIMIN 550 MG TABLET PO SCH ×2 (11:04→21:18)
[2020-08-17] MEDS: amLODIPine 5 MG TABLET PO SCH (11:04)
[2020-08-17] MEDS: carvediloL 3.125 MG TABLET PO SCH ×2 (11:04→21:18)
[2020-08-17] MEDS: MENTHOL/ZINC OXIDE OINT 71 GM JAR TOP SCH ×2 (11:04→21:19)
[2020-08-17] MEDS: INSULIN REGULAR 100 UNIT/ML SUBCUT SCH ×3 (13:15→23:00)
[2020-08-18] MEDS: LACTULOSE 20 GM/30 ML UDCUP PO SCH (06:04)
[2020-08-18 06:10] LABS: Basophils # 0.1 10*3/uL (0.0-0.2); Basophils % 1.2 % (0.0-0.8); Eosinophils # 0.1 10*3/uL (0.0-0.87); Eosinophils % 2.3 % (0.00-10.9); Hematocrit 34.8 VOL% (35.7-47.0); Immature Granulocytes % 0.2 %; Immature Granulocytes Absolute 0.01 #; Lymphocytes # 0.7 10*3/uL (1.4-4.0); Lymphocytes % 15.3 % (21.3-54.2); Mean Corpuscular HGB Conc 31.6 GM/DL (32-36); Mean Corpuscular Volume 99.4 FL (87-102); Mean Platelet Volume 11.6 FL (9.6-12.0); Monocytes % 15.1 % (1.7-12.7); Neutrophils % 65.9 % (38.7-73.9); Red Cell Distribution Width 17.1 % (9.3-17.3); White Blood Count 4.3 T/CUMM (4-12)
[2020-08-18 06:13] LABS: Platelet Count 90 T/CUMM (130-400)
[2020-08-18 06:19] LABS: Albumin 2.1 G/DL (3.4-5.0); Bilirubin,Total 1.5 MG/DL (0.2-1.0); Total Protein 7.3 G/DL (6.4-8.3)
[2020-08-18 07:12] LABS: Hypochromasia 1+; Macrocytosis 1+; Target Cells Slight
[2020-08-18 07:13] LABS: Platelet Estimate Decreased
[2020-08-18] MEDS: INSULIN REGULAR 100 UNIT/ML SUBCUT SCH ×2 (08:22→11:34)
[2020-08-18] MEDS: SEVELAMER CARBONATE 800 MG TABLET PO SCH (09:03)
[2020-08-18] MEDS: carvediloL 3.125 MG TABLET PO SCH (09:03)
[2020-08-18] MEDS: MENTHOL/ZINC OXIDE OINT 71 GM JAR TOP SCH (09:03)
[2020-08-18] MEDS: FOLIC ACID 1 MG TABLET PO SCH (09:03)
[2020-08-18] MEDS: LOSARTAN 50 MG TABLET PO SCH (09:03)
[2020-08-18] MEDS: amLODIPine 5 MG TABLET PO SCH (09:04)
[2020-08-18] MEDS: RIFAXIMIN 550 MG TABLET PO SCH (09:04)
[2020-08-18 11:43] VITALS: BP 134/68
== END 2020-08-18 12:47 | disposition home health service (06) | DRG 441 ==
LOC: EDBD → EDUNIT# → N.ED 09:54 → N.EDINP 12:01 → N.5E 12:56
PROVIDERS: ADMIT Family Medicine; ATTEND Family Medicine